=== PATIENT | female | born 1995 | race Caucasian/White ===

== ENCOUNTER → 2017-11-23 08:30 | Outpatient (CLI) | payer OTHER, SELFPAY | PROVIDERS: Family Provider Family Medicine; PCP Family Medicine; Visit Provider Obstetrics & Gynecology | DX: Z12.4 Encounter for screening for malignant neoplasm of cervix (principal) ==

== ENCOUNTER → 2018-02-23 16:18 | Outpatient (CLI) | payer OTHER, SELFPAY ==
--- NOTE | 2018-02-23 16:21 | RAD_ITS ---
STUDY: X-RAY - LUMBAR SPINE REASON FOR EXAM: Female, 22 years old. Lower back pain TECHNIQUE: 5 view(s) of the lumbar spine were obtained. COMPARISON: None FINDINGS: Normal lumbar lordosis. There is no substantial scoliosis. There is a normal alignment of the vertebrae. Normal vertebral bodies and endplates. Normal disc space heights. The soft tissue structures are unremarkable. RAD/L/S Spine Min 4 Views IMPRESSION: Normal x-ray examination of the lumbar spine. Electronically Signed: Yassine Leija MD at 15:05 EDT Tel , Service support ,
--- NOTE | 2018-02-23 16:21 | RAD_ITS ---
STUDY: X-RAY - CERVICAL SPINE REASON FOR EXAM: Female, 22 years old. Neck pain TECHNIQUE: 6 view(s) of the cervical spine were obtained. COMPARISON: None FINDINGS: Normal anterior atlantoaxial articulation. Normal odontoid process. Normal cervical lordosis. Normal vertebral bodies and endplates. Normal disc space heights. Normal visualized intervertebral neuroforamina. The soft tissue structures are unremarkable. RAD/Cerv Spine 4 or 5 Views IMPRESSION: Normal x-ray examination of the visualized cervical spine. Electronically Signed: Yassine Leija MD at 15:05 EDT Tel , Service support ,
== END ==
PROVIDERS: Family Provider Family Medicine; PCP Family Medicine; Referring Provider Family Medicine; Visit Provider Family Medicine
DX: M54.2 Cervicalgia (principal); M54.9 Dorsalgia, unspecified
CPT/HCPCS: 72050; 72110

== ENCOUNTER 2018-04-19 11:00 | Outpatient (RCR) | payer OTHER, SELFPAY ==
--- NOTE | 2018-03-29 16:32 | MASS.EVAL ---
Massage Therapy Evaluation: Initial Evaluation Date: 03/24/2018 SUBJECTIVE: Eleonora is a 22 year old female who was referred to the [facility] facility for a massotherapy evaluation by Dr. Carrizales with the diagnosis of neck and back pain. She presents today with the symptoms of tension and pain in her neck. She also complains of back tension. She reports having a medical history chronic neck and upper back and lower back tension. OBJECTIVE: Upon observation Eleonora has poor posture in sitting and standing with her neck. After examination and palpation I found her to have very high muscle tension with tenderness and myofascial restrictions in her sub occipitals, levator scapulae, trapezius, rhomboids, scalenes, and thoracic paraspinals. The first treatment consisted of a one hour massage to her upper body with myofascial release, muscle stripping, trigger point compression techniques, and cervical manual traction. ASSESSMENT: I feel that Eleonora is a good candidate for massotherapy at this time. She had a favorable response to the first treatment with reduction in her muscle aches, pain and tension. She also had improvement in her cervical flexibility and low back flexibility. PLAN: The plan of care was reviewed with the patient. The patient is to be seen on as needed basis for a total of ten sessions with the recommendation of once every two weeks for a one hour treatment. Renee Bolanos LMT
--- NOTE | 2018-05-21 16:12 | DS.PCM_ITS ---
Massage Therapy Discharge Summary: Discharge Date: 05/21/2018 Eleonora was seen for a massotherapy evaluation on 03/24/2018 with the diagnosis of neck and back pain. She was treated with three sessions of massage therapy consisting of deep pressure soft tissue techniques, myofascial release and trigger point compression to her cervical, thoracic, lower back, upper extremities and lower extremities. Eleonora responded well to the therapy by reporting decreased tension and pain throughout her head, neck, shoulders, lower back and hips. Her goals for therapy were not met throughout the treatment sessions since she was unable to schedule more appointments. At this time this patient is being discharged from our care at [facility] facility.
== END 2018-04-19 19:00 | disposition home or self-care (01) ==
LOC: MASS 11:00
PROVIDERS: Family Provider Family Medicine; PCP Family Medicine; Referring Provider Family Medicine; Visit Provider Family Medicine
DX: M54.2 Cervicalgia (principal); M54.9 Dorsalgia, unspecified
CPT/HCPCS: 97124

== ENCOUNTER → 2018-07-09 17:47 | Outpatient (CLI) | payer OTHER, SELFPAY ==
[2018-07-09 16:52] VITALS: BMI 23.9
[2018-07-09 20:24] LABS: Chlamydia Trachomatis by PCR Negative (Negative); Neisserai gonorrhoeae by PCR Negative (Negative); Probe Check PASS; Sample Adequacy Control PASS; Specimen Processing Control PASS
[2018-07-15 13:18] LABS: HPV Reflexed? NOT INDICATED
== END ==
PROVIDERS: Family Provider Family Medicine; PCP Family Medicine; Referring Provider Obstetrics & Gynecology; Visit Provider Obstetrics & Gynecology
DX: Z12.4 Encounter for screening for malignant neoplasm of cervix (principal)
CPT/HCPCS: 87086; 87088; 87491; 87591; 87624; 88175; G0145

== ENCOUNTER → 2018-07-21 15:59 | Outpatient (CLI) | payer OTHER, SELFPAY ==
[2018-07-09 16:52] VITALS: BMI 23.9
[2018-07-21 17:35] LABS: Absolute Lymphocyte Count 1.29 X10^3/ul (0.83-4.51); Absolute Neutrophil Count 4.1 X10^3/uL (2.0-7.7); Basophil# 0.02 X10^3/uL; Basophil% 0.3 % (0-1); Eosinophil# 0.05 X10^3/uL; Eosinophils% 0.8 % (0-5); Hematocrit 37.4 % (37-47); Hemoglobin 12.8 g/dl (12.0-15.0); Lymphocyte # 1.29 X10^3/ul (4.0); Lymphocyte % 21.9 % (19-41); Mean Corp Hgb Conc 34.2 g/gl (32-36); Mean Corpuscular Hgb 31.2 pg (27.0-32.0); Mean Corpuscular Volume 91.2 fL (81-99); Monocyte# 0.47 X10^3/uL; Neutrophil # 4.07 X10^3/uL (2.7-7.7); Platelet Count 146 K/mm3 (150-450); RBC Distribution Width CV 12.4 % (11.6-14.6); RBC Distribution Width SD 40.5 fl (35.1-43.9); White Blood Count 5.9 K/mm3 (4.4-11.0)
[2018-07-21 17:36] LABS: POSITIVE COUNT NO; POSITIVE DIFFERENTIAL NO; POSITIVE MORPHOLOGY NO
[2018-07-21 18:47] LABS: HIV - WCH Non-Reactive (Nonreactive)
[2018-07-23 03:12] LABS: Rapid Plasmin Reagin (RPR) NONREACTIVE (NONREACTIVE)
[2018-07-23 08:16] LABS: HEPATITIS B SURFACE AG Negative (Negative)
== END ==
PROVIDERS: Family Provider Family Medicine; PCP Family Medicine; Referring Provider Obstetrics & Gynecology; Visit Provider Obstetrics & Gynecology
DX: Z34.90 Encounter for supervision of normal pregnancy, unspecified, unspecified trimester (principal)
CPT/HCPCS: 36415; 85025; 86592; 86703; 86762; 86850; 86900; 87340

== ENCOUNTER → 2018-09-16 12:25 | Outpatient (CLI) | payer OTHER, SELFPAY ==
[2018-08-04 10:45] VITALS: BMI 23.9
[2018-09-01 11:48] VITALS: BMI 23.9
--- NOTE | 2018-09-16 12:26 | US_ITS ---
STUDY: SECOND AND THIRD TRIMESTER OBSTETRICAL ULTRASOUND REASON FOR EXAM: Female, 23 years old. Routine survey. LMP: 05/06/2018 TECHNIQUE: Transabdominal TECHNICAL QUALITY: Adequate. PRIOR ULTRASOUND: None. FINDINGS: There is a single intrauterine fetus. The fetus is in a cephalic presentation. There is demonstrated cardiac activity with a heart rate of 142 bpm. There is a normal amniotic fluid volume. The largest amniotic fluid pocket measures 3.9 cm. The placenta is anterior in location and is not low lying. There are Grade 0 placental changes. The cervix measures 4.2 cm in length. The bilateral adnexal regions are normal. BIOMETRY: BPD: 4.16 cm: 18 weeks, 5 days HC: 16.92 cm: 19 weeks, 4 days AC: 14.61 cm: 20 weeks, 0 days FL: 3.05 cm: 19 weeks, 4 days age by current US: 19 weeks, 4 days. [place] by current US: 02/06/2019. Estimated weight: 304 grams, +/- 44 grams, 82 %. Age by LMP: 19 weeks, 0 days. [place] by LMP: 02/10/2019. ANATOMY: Gender: Female Cranium: Normal lateral ventricles. Normal choroid plexus. Normal cerebellum. Normal cisterna magna. Normal face, nose and lips. Chest: Normal 4-chamber heart. Abdomen/Pelvis: Normal diaphragm. Normal stomach. Normal abdominal wall. Normal cord insertion. Normal 3 vessel cord. Normal kidneys. Normal bladder. Spine: Normal cervical spine. Normal thoracic spine. Normal lumbar spine. Normal sacrum. Extremities: Normal bilateral upper extremities. Normal bilateral lower extremities. US/OB Anatomy Scan IMPRESSION: Single live intrauterine at 19 weeks, 4 days by current ultrasound with AMERICA of 02/06/2019. Heart rate at 142 bpm. No suspicious sonographic findings. Electronically Signed: Adonay Hernandez MD at 14:05 EDT , Service support ,
== END ==
PROVIDERS: Family Provider Family Medicine; PCP Family Medicine; Referring Provider Obstetrics & Gynecology; Visit Provider Obstetrics & Gynecology
DX: Z36.9 Encounter for antenatal screening, unspecified (principal)
CPT/HCPCS: 76805

== ENCOUNTER 2018-10-05 12:30 | Outpatient (RCR) | payer OTHER, SELFPAY ==
[2018-07-09 16:52] VITALS: BMI 23.9
--- NOTE | 2018-08-16 16:01 | MASS.EVAL_ITS ---
Massage Therapy Evaluation: SUBJECTIVE: Eleonora is a 23 year old female who was referred to the [facility] facility for a massotherapy evaluation by Dr. Carrizales with the diagnosis of neck and back pain. Eleonora presents today with the symptoms of tension and pain in her neck, mid back and low back. Eleonora reports having a past medical history neck and back pain. She reports having moderate improvement with chiropractic treatments. The patient also reports of being 12 Weeks . OBJECTIVE: Upon observation Eleonora has some posture issues with her head and shoulders forward from the neutral position in sitting and standing. After examination and palpation I found Eleonora to have high muscle tension with tenderness and myofascial restrictions in her sub occipitals, levator scapulae, trapezius, rhomboids, scalenes, and thoracic paraspinals. Her QL?s, lumbar paraspinals, piriformis, glute medius and minimus all were very tight with fascial restrictions, tender points and trigger points. The first treatment consisted of a 45 minute massage to her upper body with myofascial release, muscle stripping, trigger point compression techniques, and cervical manual traction. ASSESSMENT: I feel that Eleonora is a good candidate for massotherapy at this time. She had a favorable response to the first treatment with reduction in her muscle aches, pain and tension. She also had improvement in her cervical flexibility and low back flexibility. PLAN: The plan of care was reviewed with the patient. The patient is to be seen on an as needed basis for a total of ten sessions with the recommendation of once every month for a one hour treatment.
--- NOTE | 2019-05-02 19:13 | MASS.DISCH ---
Massage Therapy Discharge Summary: Discharge Date: 05/02/2019 Eleonora was seen for a massotherapy evaluation on 08/03/2018 with the diagnosis of back pain and being . She was treated with two sessions of massage therapy consisting of moderate to deep pressure soft tissue techniques, myofascial release and trigger point compression to her cervical, thoracic, lower back, and hips. Eleonora responded well to the therapy by reporting decreased tension and pain throughout her head, neck, shoulders, lower back and hips. Her goals for therapy were met throughout the treatment sessions. At this time this patient is being discharged from our care at [facility] facility.
== END 2018-10-05 19:00 | disposition home or self-care (01) ==
LOC: MASS 12:30
PROVIDERS: Family Provider Family Medicine; PCP Family Medicine; Referring Provider Family Medicine; Visit Provider Family Medicine
DX: M54.9 Dorsalgia, unspecified (principal)
CPT/HCPCS: 97124

== ENCOUNTER → 2018-11-16 16:02 | Outpatient (CLI) | payer OTHER, SELFPAY ==
[2018-11-16 15:36] VITALS: BMI 23.9
[2018-11-16 17:13] LABS: Absolute Lymphocyte Count 1.34 X10^3/ul (0.83-4.51); Absolute Neutrophil Count 3.9 X10^3/uL (2.0-7.7); Basophil# 0.01 X10^3/uL; Basophil% 0.2 % (0-1); Eosinophils% 1.7 % (0-5); Hematocrit 35.5 % (37-47); Hemoglobin 12.2 g/dl (12.0-15.0); Lymphocyte # 1.34 X10^3/ul (4.0); Mean Corp Hgb Conc 34.4 g/gl (32-36); Mean Corpuscular Hgb 30.8 pg (27.0-32.0); Mean Corpuscular Volume 89.6 fL (81-99); Mean Platelet Vol. 9.9 fl (6.2-12.0); Monocyte# 0.44 X10^3/uL; Monocyte% 7.5 % (0-10); Neutrophil # 3.93 X10^3/uL (2.7-7.7); Neutrophil % 67.4 % (47-70); Platelet Count 166 K/mm3 (150-450); RBC Distribution Width SD 41.3 fl (35.1-43.9); Red Blood Count 3.96 M/mm3 (4.2-5.4); White Blood Count 5.8 K/mm3 (4.4-11.0)
[2018-11-16 17:16] LABS: POSITIVE COUNT NO; POSITIVE DIFFERENTIAL NO; POSITIVE MORPHOLOGY NO
[2018-11-16 17:49] LABS: Glucose Challenge Gest 1H 50g 104 mg/dL (70-140)
== END ==
PROVIDERS: Family Provider Family Medicine; PCP Family Medicine; Referring Provider Obstetrics & Gynecology; Visit Provider Obstetrics & Gynecology
DX: Z34.92 Encounter for supervision of normal pregnancy, unspecified, second trimester (principal); Z3A.27 27 weeks gestation of pregnancy
CPT/HCPCS: 36415; 82950; 85025

== ENCOUNTER → 2019-01-17 17:50 | Outpatient (CLI) | payer OTHER, SELFPAY ==
[2019-01-17 14:23] VITALS: BMI 23.9
== END ==
PROVIDERS: Family Provider Family Medicine; PCP Family Medicine; Referring Provider Obstetrics & Gynecology; Visit Provider Obstetrics & Gynecology
DX: Z34.93 Encounter for supervision of normal pregnancy, unspecified, third trimester (principal); Z3A.36 36 weeks gestation of pregnancy
CPT/HCPCS: 87081

== ENCOUNTER 2019-02-11 22:34 | Outpatient (CLI) | payer OTHER, SELFPAY ==
[2019-02-10 15:31] VITALS: BMI 23.9
[2019-02-11 23:08] VITALS: BMI 29.2
[2019-02-12] MEDS: Acetaminophen 500 MG Tablet 1000 MG PO (01:03)
[2019-02-12] MEDS: Zolpidem Tartrate 5 MG Tablet PO (01:04)
--- NOTE | 2019-02-13 00:07 | OB.TRI.PN ---
Progress Notes Date of Service: 02/11/19 Progress Note: Patient presents for triage evaluation secondary to contractions FHT: 140 Moderate variability reactive no decelerations category I tracing [place]: q3-7 Contractions Assessment and plan: False labor reactive NST, reassuring maternal and status patient discharged to home to follow-up as scheduled next week. See problem list details for additional plan information. Multi Select Codes - Urinary/Genital Urinary/Genital CPT Codes: 74217-25 non-stress test Interp
== END 2019-02-12 01:15 | disposition home or self-care (01) ==
LOC: WPOUT 22:58 → WP 22:59
PROVIDERS: Family Provider Family Medicine; PCP Family Medicine; Visit Provider Obstetrics & Gynecology
DX: O47.9 False labor, unspecified (principal); Z3A.00 Weeks of gestation of pregnancy not specified
CPT/HCPCS: 59025; 59050; 99218; G0378

== ENCOUNTER 2019-02-12 07:45 | Inpatient (IN) | payer OTHER, SELFPAY ==
[2019-02-11 23:08] VITALS: BMI 29.2
[2019-02-12 08:23] VITALS: BMI 29.2
[2019-02-12] MEDS: Lactated Ringers 1,000 ML 100 ML IV (08:35)
[2019-02-12 08:49] LABS: Absolute Lymphocyte Count 1.12 X10^3/uL (0.83-4.51); Absolute Neutrophil Count 8.5 X10^3/uL (2.0-7.7); Basophil# 0.02 X10^3/uL; Basophil% 0.2 % (0-1); Eosinophil# 0.01 X10^3/uL; Eosinophils% 0.1 % (0-5); Hematocrit 35.6 % (37-47); Hemoglobin 12.2 g/dL (12.0-15.0); Lymphocyte # 1.12 X10^3/ul (4.0); Mean Corp Hgb Conc 34.3 g/dL (32-36); Mean Corpuscular Hgb 30.7 pg (27.0-32.0); Mean Corpuscular Volume 89.4 fL (81-99); Mean Platelet Vol. 10.5 fl (6.2-12.0); Monocyte# 0.47 X10^3/uL; Monocyte% 4.6 % (0-10); NRBC Flagged by Analyzer 0 % (0-5); Neutrophil # 8.48 X10^3/uL (2.7-7.7); Neutrophil % 83.5 % (47-70); Platelet Count 153 K/mm3 (150-450); RBC Distribution Width CV 12.5 % (11.6-14.6); RBC Distribution Width SD 40.8 fl (35.1-43.9); Red Blood Count 3.98 M/mm3 (4.2-5.4); White Blood Count 10.2 K/mm3 (4.4-11.0)
[2019-02-12] MEDS: Lactated Ringers 500 ML 999 ML IV ×3 (09:05→20:51)
--- NOTE | 2019-02-12 09:24 | HP.PCM_ITS ---
- Problem List (1) Pap smear of cervix unsatisfactory Status: Acute Comment: repeat at pp (2) Supervision of normal Status: Acute Qualifiers: Comment: PRR [place] 02/10/19 girl Marc Spouse Gurpreet (3) Status: Acute Qualifiers: Comment: Discussed carrier, genetic and NT screening - declined. nl anatomy History Date of Admission: 02/12/19 Final AMERICA: 02/10/19 Gestational age: 40 Weeks and 2 Days History of this : This is a 23 year-old, , at 40 weeks gestational age presents IAL no vb lof good fm regular ctx. she has had an uncomplicated . Medical History: Medical History (Last Reviewed 02/10/19 @ 15:31 by Lety Cuello) Chronic eczema L30.9 Seasonal allergies J30.2 takes allergy injection q weekly Surgical History: Surgical History (Last Reviewed 02/10/19 @ 15:31 by Lety Cuello) H/O wisdom tooth extraction K08.409 Allergies Penicillins Allergy (Verified 02/11/19 23:09) Rash Home Medications: Home Medications vitamin#30 30 mg iron-10 mg iron-folic acid 1 mg-omg3 capsule 1 cap PO DAILY cap 09/01/18 Smoking Status: Never smoker Number of Fetus(es): 1 NST - FHR Rate Baby A Baseline: 140 Variability:: Minimal, Moderate Accelerations:: 15 x 15 Decelerations:: Late - isolated NST Reactive:: Yes FHR Category:: Category II Uterine Activity:: q 3-5 History Past Pregnancies: Past Pregnancies Delivery Date Name GA/Weeks Outcome Route Weight Gender Labor Length Anesthesia Delivery Location Provider FOB Labs: Mom's Labs & Results 02/12/19 02/12/19 08:35 08:35 WBC 10.2 RBC 3.98 L Hgb 12.2 Hct 35.6 L MCV 89.4 MCH 30.7 MCHC 34.3 RDW Std Deviation 40.8 RDW Coeff of [place] 12.5 Plt Count 153 MPV 10.5 Immature Gran % (Auto) 0.600 Neut % (Auto) 83.5 H Lymph % (Auto) 11.0 L Moody % (Auto) 4.6 Eos % (Auto) 0.1 Baso % (Auto) 0.2 Absolute Neuts (auto) 8.5 H Absolute Lymphs (auto) 1.12 Nucleated RBC % 0 Blood Type Pending Antibody Screen Pending Course Did the patient receive Yes care? Labs Blood Type: O RH: POSITIVE RPR/VDRL/Syphilis Nonreactive Rubella status Immune Date Done: 07/21/18 Chlamydia Negative Gonorrhea Negative HIV/AIDS Non-Reactive Group B Strep: Negative Current Obstetrical History Gestational Diabetes No Incompetent Cervix No Infertility No IUGR No Macrosomia No Hypertension/Pre-eclampsia No Placenta Previa/Abruption No PTL/PROM No Uterine anomaly No Oligohydramnios No Polyhydramnios No Multiple gestation No Past Medical History Asthma No Diabetes No Hypertension No Heart disease No Mitral valve prolapse No Neurologic/Seizure disorder/ No Migraines Kidney disease No Liver disease No Varicosities No Clotting disorders/Hx of DVT No Thyroid Dysfunction No Other medical diseases No Psychiatric disorders No Major trauma No Abnormal PAP smear No Sleep apnea No Mammogram in the last 2 years No Social History Marital Status: Alleged father Gurpreet Saleem Hx Smoking No Smoking Status Never smoker Expected Delivery Method: Spontaneous Vaginal Review of Systems Constitutional: Denies: Fever, Malaise Eyes: Denies: Blurred vision, Vision Change HEENT: Denies: Head Aches, Visual Changes Cardiovascular: Denies: Chest Pain, Palpitations Respiratory: Denies: Cough, Shortness of Breath, Wheezing Gastrointestinal: Denies: Abdominal Pain, Diarrhea, Nausea, Vomiting Genitourinary: Denies: Dysuria, Hematuria Musculoskeletal: Denies: Joint Pain, Muscle pain Skin: Denies: Lesions, Rash Neurological: Denies: Blurred vision, Focal weakness, Headaches Psychiatric: Denies: Anxiety, Depression Endocrine: Denies: Heat/ Cold Intolerance Hematologic/ Lymphatic: Denies: Easy Bruising, Easy Bleeding Physical Exam General: Alert, Cooperative, No apparent distress HEENT: Atraumatic, Normocephalic. Negative for: Thyromegaly, Lymphadenopathy Cardiovascular: Regular rate Lungs: Normal air movement Abdomen: Soft, Non Tender, Gravid Neurological: Deep Tendon Reflexes 2+/4 and Symmetrical, Neuro grossly intact. Negative for: Clonus CHIEF WELLNESS OFFICER: Normal external genitalia. Negative for: Vulvar lesions Estimated gestational size: Appropriate for gestational size Presentation: Cephalic Cervix Dilation (cm): 4 Assessment/Plan All Active Problems Pap smear of cervix unsatisfactory (Acute) Supervision of normal (Acute) (Acute) Segmental and somatic dysfunction of thoracic region (Acute) Segmental and somatic dysfunction of lumbar region (Acute) Segmental and somatic dysfunction of cervical region (Acute) Occupational exposure in workplace (Resolved) This is a 23 year-old, at 40 weeks gestational age presents IAL. Patient presents IAL, plan expectant management for , pitocin/AROM PRN if needed. Pain management: Plans epidural. GBS negative. Management of any complications: None I have reviewed the [facility] and made any clinically relevant updates.
[2019-02-12] MEDS: fentaNYL-bupivacaine (epidural) 100 ML BAG EPIDURAL ×3 (10:50→19:36)
[2019-02-12] MEDS: Lactated Ringers 1,000 ML 200 ML IV ×2 (14:52→19:58)
--- NOTE | 2019-02-12 16:32 | PCM.PN.BLA ---
Progress Note FHT: 140 Moderate variability positive scalp stim. one variable deceleration category II tracing [place]: q 3-5 Contractions s/p start pitocin overall reassuring 6-7 cm iupc placed
[2019-02-12] MEDS: Oxytocin 30 units/NS 500 ml 30 UNITS/500 ML IV.SOLN IV (16:33)
[2019-02-12] MEDS: Acetaminophen 325 MG Tablet PO (18:51)
[2019-02-12] MEDS: Ondansetron 4 MG/2 ML Vial IV (21:30)
[2019-02-12] MEDS: Oxytocin 30 units/NS 500 ml 30 UNITS/500 ML IV.SOLN 334 UNITS IV (23:19)
--- NOTE | 2019-02-12 23:50 | PCM.OPRPT ---
Problem List (1) Pap smear of cervix unsatisfactory Status: Acute Comment: repeat at pp (2) Supervision of normal Status: Acute Qualifiers: Comment: PRR [place] 02/10/19 girl Marc Spouse Gurpreet (3) Status: Acute Qualifiers: Comment: Discussed carrier, genetic and NT screening - declined. nl anatomy (4) Vaginal delivery Status: Acute Vaginal Delivery Maternal Presentation: Active Labor ial 40 weeks Method of Induction: Pitocin Amniotic Membrane Rupture Type: Artificial Amniotic Fluid Description: Clear Final [place]: 02/10/19 Gestational age: 40 Weeks and 2 Days Date of Procedure: 02/12/19 Pre-Operative Diagnosis: ial Post-Operative Diagnosis: same Surgery/ Procedure Performed: Spontaneous Vaginal Delivery Type of Anesthesia: Epidural Description of Procedure: Patient began pushing and delivered the head in the KATHRYN presentation. The head was delivered atraumatically. The anterior and posterior shoulders delivered without complication followed by the rest of the and the infant was placed on the maternal abdomen. Delayed cord clamping was employed for approximately 60 seconds. Cord was clamped and cut and gentle traction was applied to the cord and the placenta delivered spontaneously immediately following it was noted to be intact with three-vessel cord. The perineum and vagina were inspected and noted to have a second-degree perineal laceration was repaired in the usual fashion with 3-0 Vicryl rapide. EBL was 300 cc. Patient and infant tolerated delivery well. Presentation: KATHRYN Placental Delivery Description: Spontaneous Placenta Disposition: [facility] Cord Vessel Description: 3 Vessels Cord Entanglement: None Drain: Feliz to straight drain Estimated Blood Loss: 300 A gender: Female Episiotomy Description: None Laceration: Perineal Extension/lac, 2nd degree Medications given after delivery: IV Pitocin Complications: None
[2019-02-13] MEDS: Naproxen 250 MG Tablet 500 MG PO ×2 (01:17→08:42)
[2019-02-13] MEDS: 0.9% Saline Lock 10 ML Syringe IV (02:35)
[2019-02-13 03:10] VITALS: BP 114/66; PULSE 82; RESP 17; TEMP 36.1
[2019-02-13 08:21] VITALS: BP 106/56; PULSE 73; RESP 15; TEMP 36.9
[2019-02-13 12:00] VITALS: BP 108/64; PULSE 91; RESP 16; TEMP 36.9
--- NOTE | 2019-02-13 12:20 | PCM.PN.OB ---
Patient Problems: Active and Suspected Problems (Last Reviewed 02/10/19 @ 15:31 by Lety Cuello) Vaginal delivery (Acute) Subjective: doing well no complaints pain controlled no CP SOB N V ambulating well tolerating po lochia moderate, going well - Physical Exam General: Alert, Oriented x3 Vital Signs Temp Pulse Resp BP 98.4 F 73 15 106/56 L 02/13/19 08:21 02/13/19 08:21 02/13/19 08:21 02/13/19 08:21 Oxygen Delivery Method Room Air Weight: 170 lb Body Mass Index (BMI) 29.2 Intake and Output for Last 24 Hours 02/11/19 02/12/19 02/13/19 23:59 23:59 23:59 Intake Total 5050.53 / 5050.53 333 / 333 Output Total 2600 / 2600 600 / 600 Balance 2450.53 / 2450.53 -267 / -267 Medical Necessity - Tobacco Use Smoking Status: Never smoker Assessment/Plan All Active Problems Vaginal delivery (Acute) Pap smear of cervix unsatisfactory (Acute) Supervision of normal (Acute) (Acute) Segmental and somatic dysfunction of thoracic region (Acute) Segmental and somatic dysfunction of lumbar region (Acute) Segmental and somatic dysfunction of cervical region (Acute) Occupational exposure in workplace (Resolved) s/p PPD # 1 1. routine post delivery care 2. breast feeding- support given 3. rh positive 4. rubella immune
[2019-02-13 16:36] VITALS: BP 114/56; PULSE 72; RESP 15; TEMP 36.6
[2019-02-13] MEDS: Acetaminophen 500 MG Tablet 1000 MG PO (17:47)
[2019-02-13 20:27] VITALS: BP 115/54; PULSE 77; RESP 17; TEMP 36.6
[2019-02-14 01:14] VITALS: BP 114/72; PULSE 69; RESP 16; TEMP 36.6
[2019-02-14] MEDS: Naproxen 250 MG Tablet 500 MG PO (05:33)
[2019-02-14 08:00] VITALS: BP 113/71; PULSE 73; RESP 18; TEMP 36.6
--- NOTE | 2019-02-14 11:05 | DCINST_ITS ---
Discharge Diet: No Restrictions Discharge Activity: Return to Normal Activity, May not drive while taking narcotic pain medications., May Shower May resume sexual activity in: 4-6 weeks Call your doctor if your incision/area has: Continuous Slow Oozing, Sudden Increased Bleeding, Increased Pain/ Swelling, Increased Redness, Foul Smelling Discharge Additional Instructions: If you experience any of the following, contact your healthcare provider. * Bleeding that soaks a pad every hour for 2 hours * Fever 100.4 or higher * Unrelieved incision or abdominal pain * Swelling, redness, discharge or bleeding from your incision or episiotomy site * Your incision begins to separate * Problems urinating (including inability to urinate or burning while urinating). * Visual changes * Severe headache * Flu-like symptoms * Pain or redness in one of both of your breasts * Pain, warmth, tenderness or swelling in your legs, especially the calf area * Frequent nausea and vomiting * Symptoms of depression or anxiety If you experience any of the following, call 911 or go to the nearest Emergency Room. * Chest pain * Problems breathing * Seizure activity * Partial or complete paralysis of a body part, slurred speech, weakness or drooping of the face, or a sudden inability to walk or hold your balance Allergies/Adverse Reactions: Allergies Penicillins Allergy (Verified 02/11/19 23:09) Rash Medications to take at Discharge vitamin#30 30 mg iron-10 mg iron-folic acid 1 mg-omg3 capsule 1 cap PO DAILY cap 09/01/18 Please Follow Up With: Daphnie Mcmahan MD - [phone] When: Call to make an appointment with your doctor in 6 weeks. If you had elevated Blood pressure or 4th degree laceration you will need to be seen in 2 weeks. Primary Care Physician: Harley Carrizales MD [Primary Care Provider] - Test Results: Test results from this visit will be discussed in further detail at your follow- up appointment, if applicable.
--- NOTE | 2019-02-14 11:05 | PCM.DCVAG ---
Discharge Diet: No Restrictions Discharge Activity: Return to Normal Activity, May not drive while taking narcotic pain medications., May Shower May resume sexual activity in: 4-6 weeks Call your doctor if your incision/area has: Continuous Slow Oozing, Sudden Increased Bleeding, Increased Pain/ Swelling, Increased Redness, Foul Smelling Discharge Additional Instructions: If you experience any of the following, contact your healthcare provider. Bleeding that soaks a pad every hour for 2 hours Fever 100.4 or higher Unrelieved incision or abdominal pain Swelling, redness, discharge or bleeding from your incision or episiotomy site Your incision begins to separate Problems urinating (including inability to urinate or burning while urinating). Visual changes Severe headache Flu-like symptoms Pain or redness in one of both of your breasts Pain, warmth, tenderness or swelling in your legs, especially the calf area Frequent nausea and vomiting Symptoms of depression or anxiety If you experience any of the following, call 911 or go to the nearest Emergency Room. Chest pain Problems breathing Seizure activity Partial or complete paralysis of a body part, slurred speech, weakness or drooping of the face, or a sudden inability to walk or hold your balance Allergies/Adverse Reactions: Allergies Penicillins Allergy (Verified 02/11/19 23:09) Rash Medications to take at Discharge vitamin#30 30 mg iron-10 mg iron-folic acid 1 mg-omg3 capsule 1 cap PO DAILY cap 09/01/18 Please Follow Up With: Daphnie Mcmahan MD - [phone] When: Call to make an appointment with your doctor in 6 weeks. If you had elevated Blood pressure or 4th degree laceration you will need to be seen in 2 weeks. Primary Care Physician: Harley Carrizales MD [Primary Care Provider] - Test Results: Test results from this visit will be discussed in further detail at your follow-up appointment, if applicable.
--- NOTE | 2019-02-14 11:05 | PCM.PN.OB ---
Subjective: doing well no complaints pain controlled no CP SOB N V ambulating well tolerating po lochia moderate, going well - Physical Exam Vital Signs Temp Pulse Resp BP 97.8 F 73 18 113/71 02/14/19 08:00 02/14/19 08:00 02/14/19 08:00 02/14/19 08:00 Oxygen Delivery Method Room Air Weight: 170 lb Body Mass Index (BMI) 29.2 Intake and Output for Last 24 Hours 02/12/19 02/13/19 02/14/19 23:59 23:59 23:59 Intake Total 5050.53 / 5050.53 333 / 333 Output Total 2600 / 2600 600 / 600 Balance 2450.53 / 2450.53 -267 / -267 Medical Necessity - Tobacco Use Smoking Status: Never smoker Assessment/Plan All Active Problems Vaginal delivery (Acute) Pap smear of cervix unsatisfactory (Acute) Supervision of normal (Acute) (Acute) Segmental and somatic dysfunction of thoracic region (Acute) Segmental and somatic dysfunction of lumbar region (Acute) Segmental and somatic dysfunction of cervical region (Acute) Occupational exposure in workplace (Resolved) s/p PPD # 2 1. routine post delivery care 2. breast feeding- support given 3. rh positive 4. rubella immune
== END 2019-02-14 10:35 | disposition home or self-care (01) | DRG 807 ==
PROVIDERS: Admitting Provider Obstetrics & Gynecology; Family Provider Family Medicine; PCP Family Medicine; Referring Provider Obstetrics & Gynecology; Visit Provider Obstetrics & Gynecology
DX: O76 Abnormality in fetal heart rate and rhythm complicating labor and delivery (principal); O70.1 Second degree perineal laceration during delivery; Z37.0 Single live birth
CPT/HCPCS: 59025; 59050; 85025; 86850; 86900; 86901; 99218; J7120; A4216; G0378; J2405

== ENCOUNTER → 2019-03-31 17:04 | Outpatient (CLI) | payer OTHER, SELFPAY ==
[2019-03-31 14:39] VITALS: BMI 29.2
[2019-04-08 16:51] LABS: HPV APTIMA, High Risk Negative (Negative); HPV Reflexed? YES, CHARGE PATIENT
== END ==
PROVIDERS: Family Provider Family Medicine; PCP Family Medicine; Referring Provider Obstetrics & Gynecology; Visit Provider Obstetrics & Gynecology
DX: Z12.4 Encounter for screening for malignant neoplasm of cervix (principal)
CPT/HCPCS: 87624; 88175; G0145

== ENCOUNTER → 2019-05-12 10:28 | Outpatient (CLI) | payer OTHER, SELFPAY ==
[2019-05-12 06:32] VITALS: BMI 24.7
== END ==
PROVIDERS: Family Provider Family Medicine; PCP Family Medicine; Referring Provider Physician Assistant; Visit Provider Physician Assistant
DX: J02.9 Acute pharyngitis, unspecified (principal)
CPT/HCPCS: 87070

== ENCOUNTER → 2020-04-09 | Outpatient (CLI) | payer OTHER, SELFPAY ==
[2020-04-09 15:22] VITALS: BMI 23.3
[2020-04-12 11:22] LABS: HPV Reflexed? NOT INDICATED
== END | disposition home or self-care (01) ==
LOC: LABSPEC 16:44
PROVIDERS: Visit Provider Obstetrics & Gynecology
DX: Z12.4 Encounter for screening for malignant neoplasm of cervix (principal)
CPT/HCPCS: 88175; G0145

== ENCOUNTER → 2021-02-11 15:56 | Outpatient (CLI) | payer OTHER, BC, SELFPAY ==
[2021-02-11 16:18] LABS: Absolute Lymphocyte Count 1.94 X10^3/uL (0.83-4.51); Absolute Neutrophil Count 3.7 X10^3/uL (2.0-7.7); Basophil# 0.01 X10^3/uL; Basophil% 0.2 % (0-1); Eosinophil# 0.12 X10^3/uL; Eosinophils% 1.9 % (0-5); Hematocrit 36.6 % (37-47); Hemoglobin 13.2 g/dL (12.0-15.0); Lymphocyte # 1.94 X10^3/ul (0.83-4.51); Lymphocyte % 31.3 % (19-41); Mean Corp Hgb Conc 36.1 g/dL (32-36); Mean Corpuscular Hgb 31.1 pg (27.0-32.0); Mean Corpuscular Volume 86.3 fL (81-99); Mean Platelet Vol. 9.4 fl (6.2-12.0); Monocyte# 0.46 X10^3/uL; Monocyte% 7.4 % (0-10); NRBC Flagged by Analyzer 0 % (0-5); Neutrophil # 3.66 X10^3/uL (2.7-7.7); Platelet Count 177 K/mm3 (150-450); RBC Distribution Width CV 11.8 % (11.6-14.6); RBC Distribution Width SD 37.2 fl (35.1-43.9); Red Blood Count 4.24 M/mm3 (4.2-5.4); White Blood Count 6.2 K/mm3 (4.4-11.0)
[2021-02-11 17:20] LABS: HIV - WCH Non-Reactive (Nonreactive); Hepatitis B Surface Antigen Non-Reactive (Nonreactive); Hepatitis C Antibody Non-Reactive (Nonreactive); Rubella IgG Reactive (Nonreactive); Syphilis Antibodies Non-reactive
[2021-02-11 17:52] LABS: Amphetamine Urine VISTA NEGATIVE (<1000 ng/mL); Barbiturate Urine VISTA NEGATIVE (< 200 ng/mL); Benzodiazepine Urine VISTA NEGATIVE (< 200 ng/mL); Cocaine Urine VISTA NEGATIVE (< 300 ng/mL); Ecstacy Urine VISTA NEGATIVE (< 500 ng/mL); Methadone Urine VISTA NEGATIVE (< 300 ng/mL); PCP Urine VISTA NEGATIVE (< 25 ng/mL); THC Urine VISTA NEGATIVE (< 50 ng/mL); Vista UDS pH Range 6
[2021-02-14 06:08] LABS: Chlamydia By Nucleic Acid AMP Negative (Negative)
[2021-02-14 07:40] LABS: Gonococcus By Nucleic Acid AMP Negative (Negative)
== END ==
PROVIDERS: Nurse Practitioner Women's Health; PCP Family Medicine; Referring Provider Obstetrics & Gynecology; Visit Provider Obstetrics & Gynecology
DX: Z34.80 Encounter for supervision of other normal pregnancy, unspecified trimester (principal)
CPT/HCPCS: 36415; 80307; 85025; 86703; 86762; 86780; 86803; 86850; 86900; 86901; 87086; 87088; 87340; 87491; 87591

== ENCOUNTER → 2021-05-03 12:22 | Outpatient (CLI) | payer OTHER, BC, SELFPAY ==
--- NOTE | 2021-05-03 12:24 | US_ITS ---
STUDY: SECOND AND THIRD TRIMESTER OBSTETRICAL ULTRASOUND REASON FOR EXAM: Female, 25 years old anatomy LMP: 12/13/2020. TECHNIQUE: Transabdominal and Transvaginal TECHNICAL QUALITY: Adequate. PRIOR ULTRASOUND: None. FINDINGS: There is a single intrauterine fetus. The fetus is in a transverse lie with the head on the maternal right side. There is demonstrated cardiac activity with a heart rate of 144 bpm. There is a normal amniotic fluid volume. The largest amniotic fluid pocket measures 7.2 cm x 2.5 cm. The amniotic fluid index (SEBASTIAN) is within normal limits. The placenta is posterior and low lying but not previa in location. There are Grade 0 placental changes. The cervix measures 3.8 cm in length. The bilateral adnexal regions are normal. BIOMETRY: BPD: 4.7 cm: 20 weeks, 1 days HC: 18.3 cm: 20 weeks, 4 days AC: 15.8 cm: 20 weeks, 6 days FL: 3.6 cm: 21 weeks, 2 days CI: 77% FL/BPD: 77% FL/HC: FL/AC: 23% HC/AC: 1.16 age by current US: 20 weeks, 3 days. [place] by current US: 09/17/2021. Estimated weight: 395 grams, +/- 59 grams, 88 %. Age by LMP: 20 weeks, 1 days. [place] by LMP: 09/19/2021. ANATOMY: Gender: Female Cranium: Normal lateral ventricles. Normal choroid plexus. Normal cerebellum. Normal cisterna magna. Normal face, nose and lips. Chest: Normal 4-chamber heart. Abdomen/Pelvis: Normal diaphragm. Normal stomach. Normal abdominal wall. Normal cord insertion. Normal 3 vessel cord. Normal kidneys. Normal bladder. Spine: Normal cervical spine. Normal thoracic spine. Normal lumbar spine. Normal sacrum. Extremities: Normal bilateral upper extremities. Normal bilateral lower extremities. IMPRESSION: Single live intrauterine gestation with a mean gestational age of 20 weeks and 3 days. Low lying posterior placenta. Electronically Signed: Scott Sanabria MD at 14:29 EST , Service support , STUDY: FIRST TRIMESTER OBSTETRICAL ULTRASOUND REASON FOR EXAM: Female, 25 years old. Cervical length measurement. TECHNIQUE: Transvaginal TECHNICAL QUALITY: Adequate. PRIOR ULTRASOUND: None. FINDINGS: The cervical length measures 3.8 cm. US/OB Anatomy Scan IMPRESSION: Cervical length measures 3.8 cm. Electronically Signed: Scott Sanabria MD at 14:30 EST , Service support ,
== END ==
PROVIDERS: PCP Family Medicine; Referring Provider Nurse Practitioner Women's Health; Visit Provider Nurse Practitioner Women's Health
DX: Z36.89 Encounter for other specified antenatal screening (principal)
CPT/HCPCS: 76805; 76817

== ENCOUNTER 2021-06-25 08:01 | Outpatient (CLI) | payer OTHER, BC, SELFPAY ==
[2021-06-25 08:32] LABS: Absolute Neutrophil Count 4.5 X10^3/uL (2.0-7.7); Basophil# 0.03 X10^3/uL; Basophil% 0.5 % (0-1); Eosinophil# 0.08 X10^3/uL; Eosinophils% 1.2 % (0-5); Lymphocyte % 21.2 % (19-41); Mean Corp Hgb Conc 35.5 g/dL (32-36); Mean Corpuscular Hgb 32.9 pg (27.0-32.0); Mean Corpuscular Volume 92.8 fL (81-99); Mean Platelet Vol. 9.5 fl (6.2-12.0); Monocyte# 0.61 X10^3/uL; Monocyte% 9.2 % (0-10); NRBC Flagged by Analyzer 0 % (0-5); Neutrophil # 4.45 X10^3/uL (2.7-7.7); Neutrophil % 67.3 % (47-70); Platelet Count 123 K/mm3 (150-450); RBC Distribution Width CV 12.6 % (11.6-14.6); RBC Distribution Width SD 42.6 fl (35.1-43.9); Red Blood Count 3.34 M/mm3 (4.2-5.4); White Blood Count 6.6 K/mm3 (4.4-11.0)
[2021-06-25 08:44] LABS: Glucose Challenge Gest 1H 50g 76 mg/dL (70-140)
== END 2021-06-25 23:59 | disposition short-term general hospital (02) ==
LOC: PAVLAB 08:02
PROVIDERS: PCP Family Medicine; Referring Provider Obstetrics & Gynecology; Visit Provider Obstetrics & Gynecology
DX: Z34.80 Encounter for supervision of other normal pregnancy, unspecified trimester (principal)
CPT/HCPCS: 36415; 82950; 85025

== ENCOUNTER 2021-06-27 09:58 | Outpatient (CLI) | payer OTHER, BC, SELFPAY ==
--- NOTE | 2021-06-27 10:02 | US_ITS ---
STUDY: SECOND AND THIRD TRIMESTER OBSTETRICAL ULTRASOUND - LIMITED REASON FOR EXAM: Female, 25 years old follow up low lying placenta LMP: 12/13/2020. PRIOR ULTRASOUND: Comparison is made with prior examination dated 05/03/2021. TECHNIQUE: Transabdominal and Transvaginal TECHNICAL QUALITY: Adequate. FINDINGS: There is a single intrauterine fetus. The fetus is in a breech presentation. There is demonstrated cardiac activity with a heart rate of 138 bpm. There is a normal amniotic fluid volume. The largest amniotic fluid pocket measures 5.8 cm x 6.4 cm. The amniotic fluid index (SEBASTIAN) is within normal limits. The placenta is posterior in location and is not low lying. There are Grade 0 placental changes. The cervix measures 3.73 cm in length. BIOMETRY: Age by LMP: 28 weeks, 0 days. AMERICA by LMP: 09/19/2021. US/OB Limited (No Biometrics) IMPRESSION: The placenta is posterior in location and is not low lying. Electronically Signed: Scott Sanabria MD at 11:49 EST ,
== END 2021-06-27 23:59 | disposition short-term general hospital (02) ==
LOC: US 09:59
PROVIDERS: PCP Family Medicine; Referring Provider Obstetrics & Gynecology; Visit Provider Obstetrics & Gynecology
DX: O44.43 Low lying placenta NOS or without hemorrhage, third trimester (principal); Z3A.28 28 weeks gestation of pregnancy
CPT/HCPCS: 76815; 76817

== ENCOUNTER 2021-07-09 08:38 | Outpatient (CLI) | payer OTHER, BC, SELFPAY ==
[2021-07-09 08:59] LABS: Absolute Lymphocyte Count 1.57 X10^3/uL (0.83-4.51); Absolute Neutrophil Count 3.3 X10^3/uL (2.0-7.7); Basophil# 0.01 X10^3/uL; Basophil% 0.2 % (0-1); Eosinophil# 0.05 X10^3/uL; Eosinophils% 0.9 % (0-5); Hematocrit 31.4 % (37-47); Hemoglobin 11.1 g/dL (12.0-15.0); Lymphocyte # 1.57 X10^3/ul (0.83-4.51); Lymphocyte % 28.2 % (19-41); Mean Corp Hgb Conc 35.4 g/dL (32-36); Mean Corpuscular Hgb 32.9 pg (27.0-32.0); Mean Corpuscular Volume 93.2 fL (81-99); Mean Platelet Vol. 9.5 fl (6.2-12.0); Monocyte# 0.59 X10^3/uL; Monocyte% 10.6 % (0-10); NRBC Flagged by Analyzer 0 % (0-5); Neutrophil # 3.27 X10^3/uL (2.7-7.7); Neutrophil % 58.7 % (47-70); Platelet Count 144 K/mm3 (150-450); RBC Distribution Width CV 12.6 % (11.6-14.6); RBC Distribution Width SD 42.5 fl (35.1-43.9); Red Blood Count 3.37 M/mm3 (4.2-5.4); White Blood Count 5.6 K/mm3 (4.4-11.0)
[2021-07-09 09:31] LABS: Thyroid Stim Hormone (TSH) 2.31 uIU/mL (0.358-3.74)
== END 2021-07-09 23:59 | disposition home or self-care (01) ==
LOC: PAVLAB 08:39
PROVIDERS: PCP Family Medicine; Referring Provider Nurse Practitioner Women's Health; Visit Provider Nurse Practitioner Women's Health
DX: D69.6 Thrombocytopenia, unspecified (principal); R23.2 Flushing
CPT/HCPCS: 36415; 84443; 85025

== ENCOUNTER 2021-08-29 06:33 | Outpatient (CLI) | payer OTHER, BC, SELFPAY | END 2021-08-29 23:59 | disposition home or self-care (01) | LOC: LABSPEC 06:34 | PROVIDERS: PCP Family Medicine; Visit Provider Obstetrics & Gynecology | DX: Z34.80 Encounter for supervision of other normal pregnancy, unspecified trimester (principal) | CPT/HCPCS: 87081 ==

== ENCOUNTER → 2021-09-11 | Outpatient (CLI) | payer OTHER, BC, SELFPAY ==
[2021-09-11 09:37] LABS: ROM Internal Control Test YES-OK TO RESULT pt. (Internal QC)
[2021-09-11 09:38] LABS: ROM Patient Test Negative (Negative)
== END | disposition home or self-care (01) ==
PROVIDERS: PCP Family Medicine; Visit Provider Obstetrics & Gynecology
DX: O26.899 Other specified pregnancy related conditions, unspecified trimester (principal); O99.891 Other specified diseases and conditions complicating pregnancy; N89.8 Other specified noninflammatory disorders of vagina
CPT/HCPCS: 84112

== ENCOUNTER 2021-09-20 21:15 | Inpatient (IN) | payer OTHER, BC, SELFPAY ==
[2021-09-20] VITALS (19 sets, daily range): BP systolic 94–134; BP diastolic 48–84; PULSE 69–87; TEMP 36.7; O2SAT 97–100; BMI 28.3
[2021-09-20] MEDS: Lactated Ringers 1,000 ML 200 ML IV (21:25)
[2021-09-20 21:51] LABS: Absolute Lymphocyte Count 1.33 X10^3/uL (0.83-4.51); Absolute Neutrophil Count 7.1 X10^3/uL (2.0-7.7); Basophil# 0.03 X10^3/uL; Basophil% 0.3 % (0-1); Eosinophil# 0.09 X10^3/uL; Hematocrit 31.9 % (37-47); Hemoglobin 10.7 g/dL (12.0-15.0); Lymphocyte # 1.33 X10^3/ul (0.83-4.51); Lymphocyte % 14.2 % (19-41); Mean Corp Hgb Conc 33.5 g/dL (32-36); Mean Corpuscular Hgb 28.8 pg (27.0-32.0); Mean Platelet Vol. 10.6 fl (6.2-12.0); Monocyte# 0.71 X10^3/uL; Monocyte% 7.6 % (0-10); NRBC Flagged by Analyzer 0 % (0-5); Neutrophil # 7.14 X10^3/uL (2.7-7.7); Neutrophil % 76.4 % (47-70); Platelet Count 148 K/mm3 (150-450); RBC Distribution Width CV 13.1 % (11.6-14.6); RBC Distribution Width SD 40.6 fl (35.1-43.9); Red Blood Count 3.71 M/mm3 (4.2-5.4); White Blood Count 9.4 K/mm3 (4.4-11.0)
[2021-09-20] MEDS: Lactated Ringers 500 ML 999 ML IV (22:05)
[2021-09-20] MEDS: fentaNYL-bupivacaine (epidural) 100 ML BAG EPIDURAL (23:05)
[2021-09-21] VITALS (26 sets, daily range): BP systolic 94–127; BP diastolic 55–83; PULSE 55–80; RESP 16; TEMP 35.9–36.7; O2SAT 96–100
[2021-09-21] MEDS: Lactated Ringers 1,000 ML 200 ML IV (02:26)
[2021-09-21] MEDS: fentaNYL-bupivacaine (epidural) 100 ML BAG EPIDURAL (03:32)
--- NOTE | 2021-09-21 03:36 | HP.PCM.OB_ITS ---
HPI - General General Date of Admission: 09/20/21 HPI Narrative NAVEEN SHAH, is a 26 F who presents IAL 5 cm dilated upon admission with regular ctx no lof or vb admits good fm. she has had an uncomplicated pregnacy. Maternal Data Information AMERICA Calculator Estimated Delivery Date Method Current WG Current Estimate 09/19/21 LMP (Certain) 40w 2d PFSH PFSH Medical History Chronic eczema Seasonal allergies Home Medications vitamin#30 30 mg iron-10 mg iron-folic acid 1 mg-omg3 capsule 1 cap PO DAILY cap 09/01/18 [History Last Taken 09/20/21 08:00] Allergy/AdvReac Type Severity Reaction Status Date / Time Penicillins Allergy Rash Verified 09/11/21 08:29 Family History Grandfather No problems noted. 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 Date Name GA/Weeks Outcome Route Bth Weight Gen Labor Lgth Anesthesia Del Locatn Provider FOB 02/12/19 Maria Elena Dhruv Shah 40 live - full term 6.12 Fema le epidural [employer] [facility]ST[facility] Gurpreet Delivery Date: 02/12/19 2 degree lac Asha Chung Visit Details Expected Delivery Route/Plan Labor Preferences- CB/BF classes: no labor support person: Gurpreet labor intervention preferences: [] pain management options preferred: epidural cut cord/dad catch: cord : yes PP control planned: discussed:considering IUD discussed possible routes of delivery and associated risks: [] special requests: [] Plans Covid status: counseled regarding risk of covid in vs vaccination and declined vaccination Flu vaccine: given Tdap vaccine: given Rhogam:na LARC form signed: yes Problem list reviewed and updated with the most current plan of care details and appropriate orders placed. Relevant counseling for the gestational age provided. Continue routine care and follow up unless otherwise noted in visit notes/problem list details OB Flowsheet Initial Weight: Not Recorded Date -?-?-?-?-?-?-?-?-?-?-?-?- EGA Weight BP Urine Prot -?-?-?-?-?-?-?-?-?-?-?-?- Glucose FHR FuHt Pres Dilation -?-?-?-?-?-?-?-?-?-?-?-?- Effaced St Visit Note 02/11/21 -?-?-?-?-?-?-?-?-?-?-?-?- 8w 4d 133 lb 120/70 -?-?-?-?-?-?-?-?-?-?-?-?- 175 -?-?-?-?-?-?-?-?-?-?-?-?- MH-NOB. US per SM: CRL 2.1cm consistent with LMP and AMERICA of 09/19/21. No VB. Nausea improved. 03/14/21 -?-?-?-?-?-?-?-?-?-?-?-?- 13w 0d 140 lb 118/68 -?-?-?-?-?-?-?-?-?-?-?-?- 150 -?-?-?-?-?-?-?-?-?-?-?-?- SM- no vb crampi ng 04/09/21 -?-?-?-?-?-?-?-?-?-?-?-?- 16w 5d 144 lb 120/60 Negative -?-?-?-?-?-?-?-?-?-?-?-?- Negative 154 -?-?-?-?-?-?-?-?-?-?-?-?- -no VB, LOF. H ad some dizziness mostly when turning suddenly. Better last 2 days. Enc fluids, small freg meals. Considering covid vaccine/enc. Ordered [employer] anatomy US 05/06/21 -?-?-?-?-?-?-?-?-?-?-?-?- 20w 4d 144 lb 114/58 -?-?-?-?-?-?-?-?-?-?-?-?- 145 -?-?-?-?-?-?-?-?-?-?-?-?- - no vb lof go od fm 06/05/21 -?-?-?-?-?-?-?-?-?-?-?-?- 24w 6d 154 lb 4 oz 102/70 Nega tive -?-?-?-?-?-?-?-?-?-?-?-?- Negative 154 -?-?-?-?-?-?-?-?-?-?-?-?- -No VB, LOF. G ood FM. More vulvar varicosities-enc belly band. 07/02/21 -?-?-?-?-?-?-?-?-?-?-?-?- 28w 5d 157 lb 2 oz 110/62 Trac e -?-?-?-?-?-?-?-?-?-?-?-?- Negative 146 -?-?-?-?-?-?-?-?-?-?-?-?- -No Vb, LOF. G ood FM. Nl 28 wk GCT and no anemia. Note very mild thrombocytopenia. Will repeat CBC 2 weeks. She has had hotflashes since last delivery 2+yr ago. May be hormonal but will check TSH. Larc, tdap done. 07/18/21 -?-?-?-?-?-?-?-?-?-?-?-?- 31w 0d 158 lb 110/70 Negative -?-?-?-?-?-?-?-?-?-?-?-?- Negative 140 28 Breech -?-?-?-?-?-?-?-?-?-?-?-?- JV- no lof, vagi nal bleeding or dec fm. + varicosities. Plts improved. No complaints. 07/30/21 -?-?-?-?-?-?-?-?-?-?-?-?- 32w 5d 158 lb 108/60 Negative -?-?-?-?-?-?-?-?-?-?-?-?- Negative 140 33 Cephalic -?-?-?-?-?-?-?-?-?-?-?-?- SM- no vb lof go od fm irregualr ctx 08/14/21 -?-?-?-?-?-?-?-?-?-?-?-?- 34w 6d 161 lb 6 oz 112/76 Nega tive -?-?-?-?-?-?-?-?-?-?-?-?- Negative 139 34 -?-?-?-?-?-?-?-?-?-?-?-?- MH-No VB, LOF. G ood FM. Some sciatica pain, will contact her chiropractor. 08/28/21 -?-?-?-?-?-?-?-?-?-?-?-?- 36w 6d 166 lb 110/80 Negative -?-?-?-?-?-?-?-?-?-?-?-?- Negative 135 36 Cephalic 0 -?-?-?-?-?-?-?-?-?-?-?-?- -3 JV- no l of, vaginal bleeding, or dec fm. vtx on us today. gbs collected. 09/04/21 -?-?-?-?-?-?-?-?-?-?-?-?- 37w 6d 165 lb 124/74 Negative -?-?-?-?-?-?-?-?-?-?-?-?- Negative 140 37 Cephalic 2 -?-?-?-?-?-?-?-?-?-?-?-?- 80 -2 JV- no lof , vaginal bleeding or dec fm. labor precautions discussed. 09/11/21 -?-?-?-?-?-?-?-?-?-?-?-?- 38w 6d 168 lb 116/76 Negative -?-?-?-?-?-?-?-?-?-?-?-?- Negative 154 38 Cephalic 2 -?-?-?-?-?-?-?-?-?-?-?-?- 80 -2 JV- pt com [place] of leaking fluid this am. she describes it as having more fluid come out after she urinated. 09/17/21 -?-?-?-?-?-?-?-?-?-?-?-?- 39w 5d 166 lb 114/70 Negative -?-?-?-?-?-?-?-?-?-?-?-?- Negative 150 39 Cephalic 2 -?-?-?-?-?-?-?--?-?-?-?-?- 80 -2 SM- no vb lof good fm no regular ctx discussed IOL thursday if no spontaneous labor SM- no vb lof good fm no reg ualr ctx 09/20/21 -?-?-?-?-?-?-?-?-?-?-?-?- 40w 1d 165 lb 129/73 119/67 134/74 131/74 134/70 125/84 114/61 109/52 105/52 94/48 107/53 103/54 105/63 111/65 103/58 101/55 100/58 -?-?-?-?-?-?-?-?-?-?-?-?- -?-?-?-?-?-?-?-?-?-?-?-?- NST FHR Rate Baby A Baseline: 140 Variability:: Moderate Accelerations:: 15 x 15 Decelerations:: None NST Reactive:: Yes FHR Category:: Category I Uterine Activity:: q3-5 ROS Constitutional Constitutional: Reports systems reviewed and no addt'l complaints, except as documented ENT HEENT: Reports systems reviewed and no addt'l complaints, except as documented Cardiovascular Cardiovascular: Reports systems reviewed and no addt'l complaints, except as documented Respiratory/Chest Respiratory/Chest: Reports systems reviewed and no addt'l complaints, except as documented Gastrointestinal Gastrointestinal: Reports systems reviewed and no addt'l complaints, except as documented and nausea; Denies abdominal pain Genitourinary Genitourinary: Reports systems reviewed and no addt'l complaints, except as documented, contractions Details: present and frequency (regular ) and movement Details: present Musculoskeletal Musculoskeletal: Reports systems reviewed and no addt'l complaints, except as documented Integumentary Integumentary: Reports as per HPI Neurologic Neurologic: Reports systems reviewed and no addt'l complaints, except as documented Endocrine Endocrinology: Reports systems reviewed and no addt'l complaints, except as documented Vital Signs Vital Signs Vital Signs: 09/20/21 21:07 09/20/21 22:17 09/20/21 22:39 Temperature 98.1 F Temperature Source Pulse Rate 75 73 Blood Pressure 129/73 H 119/67 134/74 H BP Systolic 129 119 134 BP Diastolic 73 67 74 Pulse Ox 100 09/20/21 22:40 09/20/21 22:45 09/20/21 22:49 Temperature Temperature Source Pulse Rate 82 82 82 Blood Pressure 131/74 H 134/70 H BP Systolic 131 134 BP Diastolic 74 70 Pulse Ox 100 100 09/20/21 22:50 09/20/21 22:54 09/20/21 22:55 Temperature Temperature Source Pulse Rate 87 71 Blood Pressure 125/84 H BP Systolic 125 BP Diastolic 84 Pulse Ox 99 100 09/20/21 23:00 09/20/21 23:05 09/20/21 23:06 Temperature Temperature Source Pulse Rate 80 74 80 Blood Pressure 114/61 109/52 L BP Systolic 114 109 BP Diastolic 61 52 Pulse Ox 99 98 09/20/21 23:10 09/20/21 23:12 09/20/21 23:15 Temperature Temperature Source Pulse Rate 69 75 74 Blood Pressure 105/52 L BP Systolic 105 BP Diastolic 52 Pulse Ox 98 97 09/20/21 23:16 09/20/21 23:20 09/20/21 23:21 Temperature Temperature Source Pulse Rate 74 71 73 Blood Pressure 94/48 L 107/53 L BP Systolic 94 107 BP Diastolic 48 53 Pulse Ox 98 09/20/21 23:25 09/21/21 00:13 09/21/21 00:16 Temperature 97.6 F L Temperature Source Temporal Pulse Rate 71 61 66 Blood Pressure 103/54 L 105/63 BP Systolic 103 105 BP Diastolic 54 63 Pulse Ox 98 97 09/21/21 01:02 09/21/21 01:41 09/21/21 01:43 Temperature 96.7 F L 96.7 F L Temperature Source Temporal Pulse Rate 73 56 L Blood Pressure 111/65 103/58 L BP Systolic 111 103 BP Diastolic 65 58 Pulse Ox 99 09/21/21 01:44 09/21/21 02:27 09/21/21 02:28 Temperature 97.5 F L Temperature Source Temporal Pulse Rate 66 64 Blood Pressure 101/55 L BP Systolic 101 BP Diastolic 55 Pulse Ox 98 97 09/21/21 03:16 Temperature 97.5 F L Temperature Source Temporal Pulse Rate 55 L Blood Pressure 100/58 L BP Systolic 100 BP Diastolic 58 Pulse Ox 100 Weight Weight: 165 lb Body Mass Index (BMI) 28.3 Physical Exam Const alert, oriented x3 and healthy appearing Constitutional Narrative: uncomfortable with contractions HEENT normocephalic and moist oral mucous membranes Head and Scalp: atraumatic Neck full ROM, no lymphadenopathy, supple and thyroid normal General: trachea midline Thyroid: thyroid normal Lymph Lymphatic: no lymphadenopathy noted Chest inspection of chest normal Resp normal respiratory effort Cardio regular rate GI normal to inspection, nondistended, normoactive bowel sounds, soft to palpation and non-tender Inspection: gravid external exam normal Bimanual Exam - Vag & Uterus: uterus non-tender Manual OB Exam: estimated gestational size appropriate, presentation cephalic, dilated, effaced and station Extremity normal to inspection General Extremity: Negative for edema Skin no rashes or lesions noted Neuro deep tendon reflexes 2+ bilaterally Motor Exam: strength 5/5 throughout and clonus absent Psych mental status grossly normal Labs Labs Labs: Blood Type O POSITIVE Antibody Screen NEGATIVE Hct 31.9 % (37-47) L Hgb 10.7 g/dL (12.0-15.0) L Obstetrics US Syphilis Total Ab Non-reactive Rubella IgG Antibody Reactive (Nonreactive) Hep Bs Antigen Non-Reactive (Nonreactive) Chlamydia DNA ([place]) Negative (Negative) Neisseria gonorrhoeae DNA ([place]) Negative (Negative) HIV 1&2 Antibody Non-Reactive (Nonreactive) Glucose 1 Hr 50 gm 76 mg/dL (70-140) Rhogam given: No Assessment & Plan (1) Thrombocytopenia: COMMENT: mild at 123,000:rpt 2 weeks:144,000 (2) Supervision of other normal : COMMENT: PRR AMERICA: 09/19/21 girl PC: Maria Elena Spouse: Gurpreet GBS negative (3) : QUALIFIERS: Weeks of gestation: 39 weeks Qualified Code(s): Z 3A.39 - 39 weeks gestation of COMMENT: Declines genetic, declines carrier and NTD. nl anatomy PLAN: Patient presents IAL, plan expectant management for , pitocin/AROM PRN if needed. Pain management: plans epidural. GBS neg. Management of any complications: none I have reviewed the [facility] and made any clinically relevant updates.
--- NOTE | 2021-09-21 04:19 | OP.PCM_ITS ---
Assessment & Plan (1) Thrombocytopenia: COMMENT: mild at 123,000:rpt 2 weeks:144,000 (2) Supervision of other normal : COMMENT: PRR [place]: 09/19/21 girl PC: Maria Elena Spouse: Gurpreet GBS negative (3) : QUALIFIERS: Weeks of gestation: 39 weeks Qualified Code(s): Z3A.39 - 39 weeks gestation of COMMENT: Declines genetic, declines carrier and NTD. nl anatomy (4) Normal vaginal delivery: COMMENT: SM 40 IAL girl Maternal Data Information AMERICA Calculator Estimated Delivery Date Method Current WG Current Estimate 09/19/21 LMP (Certain) 40w 2d Vaginal Delivery Operative Information Date of Procedure: 09/21/21 Pre-Operative Diagnosis: IAL Post-Operative Diagnosis: same Surgery / Procedure Performed: Spontaneous Vaginal Delivery Type of Anesthesia: Epidural Special Medications: none Estimated Blood Loss: 100 Fluids Replaced: crystalloid Findings Description of Procedure: Patient began pushing and delivered the head in the KATHRYN presentation. The head was delivered atraumatically . The anterior and posterior shoulders delivered without complication followed by the rest of the and the was placed on the maternal abdomen. Delayed cord clamping was employed for approximately 60 seconds. Cord was clamped and cut and gentle traction was applied to the cord and the placenta delivered spontaneously immediately following it was noted to be intact with three-vessel cord. The perineum and vagina were inspected and noted to hae a first degree perineal laceration repaired in the usual fashion with 3-0 rapide. EBL was 100 cc. Patient and tolerated delivery well. Presentation: KATHRYN Amniotic Membrane Rupture Type: Artificial Amniotic Fluid Description: Lightly stained meconium Placental Delivery Description: Spontaneous Placenta Disposition: [facility] Cord Vessel Description: 3 Vessels Cord Entanglement: None Delayed Cord Clamping: Yes Post Vaginal Delivery Medications Given After Delivery: IV Pitocin Episiotomy Description: None Laceration: Perineal Extension/lac and 1st degree Complication Complications: None Procedures Urinary/Genital [id number]: [id number] Vaginal Delivery [facility]
--- NOTE | 2021-09-21 04:20 | PCM.DC ---
Discharge Instructions Diet Discharge Diet: No restrictions Activity Discharge Activity: Return to Normal Activity, May Not Drive (while taking narcotic pain medications.) and May Shower May resume sexual activity in: 4-6 weeks Dressing / Incision Call your doctor if your incision/area has: Continuous Slow Oozing, Sudden Increased Bleeding, Increased Pain/ Swelling, Increased Redness and Foul Smelling Discharge Follow Up Care Please Follow Up With: Daphnie Mcmahan MD When: Call [phone] to make an appointment with your doctor in 6 weeks. If you had elevated blood pressure or 4th degree laceration, you will need to be seen in 2 weeks. Test Results: Test results from this visit will be discussed in further detail at your follow-up appointment, if applicable. Discharge Plan Admission Admit Date/Time: 09/20/21 21:15 Attending Provider: Daphnie Mcmahan Primary Care Provider: Harley Carrizales Discharge Orders/Prescriptions Prescriptions: No Action vitamin#30 30 mg iron-10 mg iron-folic acid 1 mg-omg3 capsule 30 mg iron-10 mg iron-1 mg capsule 1 cap PO DAILY RF: 0 Referrals / Follow Up: Harley Carrizales MD [Primary Care Provider] - Disposition Disposition (needs filled in before D/C Order can be placed): Home, Self Care
[2021-09-21] MEDS: Oxytocin 30 units/NS 500 ml 30 UNITS/500 ML IV.SOLN 334 UNITS IV (04:34)
[2021-09-21] MEDS: 0.9% Saline Lock 10 ML Syringe IV (07:06)
[2021-09-21] MEDS: Naproxen 500 MG Tablet PO ×2 (07:57→17:30)
[2021-09-21] MEDS: Hydrocortisone 2.5% Crm 1 APPLIC TOPICAL (08:19)
[2021-09-21] MEDS: Senna/Docusate Sodium 1 Tablet PO (20:21)
[2021-09-22 00:30] VITALS: BP 113/68; PULSE 50; RESP 14; TEMP 36.6; O2SAT 97
[2021-09-22] MEDS: Acetaminophen 500 MG Tablet 1000 MG PO (01:18)
[2021-09-22 04:58] VITALS: BP 107/68; PULSE 60; RESP 18; TEMP 36.6
[2021-09-22] MEDS: Naproxen 500 MG Tablet PO (07:06)
[2021-09-22 07:40] VITALS: BP 113/78; PULSE 63; RESP 16; TEMP 36.2; O2SAT 97
--- NOTE | 2021-09-22 07:55 | PCM.PN.OB ---
Subjective Subjective Patient doing well without complaints. Tolerating PO. Ambulating and voiding without difficulty. feeding well. Denies chest pain, shortness of breath, calf pain/swelling, fevers, chills, lightheadedness. Objective Data Objective Data Vital Signs: Vital Signs Temp Pulse Resp BP Pulse Ox 97.2 F L 63 16 113/78 97 09/22/21 07:40 09/22/21 07:40 09/22/21 07:40 09/22/21 07:40 09/22/21 07:40 Oxygen Delivery Method Room Air Weight: 165 lb Body Mass Index (BMI) 28.3 Intake & Output: Intake and Output for Last 24 Hours 09/20/21 09/21/21 09/22/21 23:59 23:59 23:59 Intake Total 500 / 500 1926.67 / 1926.67 Output Total 1300 / 1300 Balance 500 / 500 626.67 / 626.67 Lab / Micro Data Result Diagrams: 09/20/21 21:25 Micro: Microbiology 09/20/21 21:40 Nasal Secretion SARS-CoV-2 Antigen (Rapid) - Final ROS Constitutional Constitutional: Reports systems reviewed and no addt'l complaints, except as documented Cardiovascular Cardiovascular: Reports systems reviewed and no addt'l complaints, except as documented Respiratory/Chest Respiratory/Chest: Reports systems reviewed and no addt'l complaints, except as documented Gastrointestinal Gastrointestinal: Reports systems reviewed and no addt'l complaints, except as documented Physical Exam Const alert, oriented x3 and no apparent distress HEENT Head and Scalp: atraumatic Resp normal respiratory effort GI soft to palpation and non-tender Bimanual Exam - Vag & Uterus: uterus non-tender Uterus Palpation: uterus fundus firm (below Umbilicus) Assessment & Plan (1) Normal vaginal delivery: COMMENT: SM 40 IAL girl PLAN: s/p PPD # 1 1. routine post delivery care 2. breast feeding- support given 3. rh positive 4. rubella immune
--- NOTE | 2021-09-28 10:37 | NURSING ---
Follow up call complete, patient reports she is doing very well and was satisfied with her care. Denies any questions or concerns.
== END 2021-09-22 09:58 | disposition home or self-care (01) | DRG 807 ==
LOC: WPOUT 21:19 → WP 21:19
PROVIDERS: Admitting Provider Obstetrics & Gynecology; PCP Family Medicine; Visit Provider Obstetrics & Gynecology
DX: O99.12 Other diseases of the blood and blood-forming organs and certain disorders involving the immune mechanism complicating childbirth (principal); Z37.0 Single live birth; D69.6 Thrombocytopenia, unspecified; O77.0 Labor and delivery complicated by meconium in amniotic fluid; Z3A.40 40 weeks gestation of pregnancy; O70.0 First degree perineal laceration during delivery
CPT/HCPCS: 59025; 59050; 85025; 86850; 86900; 86901; 87426; 99218; J7120; A4216; G0378

== ENCOUNTER → 2022-10-30 | Outpatient (CLI) | payer BC, SELFPAY ==
[2022-11-04 18:23] LABS: HPV Reflexed? NOT INDICATED
== END | disposition home or self-care (01) ==
LOC: LABSPEC 14:08
PROVIDERS: PCP Family Medicine; Referring Provider Obstetrics & Gynecology; Visit Provider Obstetrics & Gynecology
DX: Z12.4 Encounter for screening for malignant neoplasm of cervix (principal)
CPT/HCPCS: 88175; G0145

== ENCOUNTER → 2023-04-24 | Outpatient (CLI) | payer BC, SELFPAY ==
[2023-04-24 11:44] LABS: Thyroid Stim Hormone (TSH) 1.26 uIU/mL (0.358-3.74)
== END | disposition home or self-care (01) ==
PROVIDERS: Advanced Practice Midwife; PCP Family Medicine; Referring Provider Obstetrics & Gynecology; Visit Provider Obstetrics & Gynecology
DX: R23.2 Flushing (principal)
CPT/HCPCS: 36415; 84443

== ENCOUNTER → 2023-07-21 | Outpatient (CLI) | payer BC, SELFPAY ==
[2023-07-23 22:07] LABS: Chlamydia By Nucleic Acid AMP Negative (Negative); Gonococcus By Nucleic Acid AMP Negative (Negative)
== END | disposition home or self-care (01) ==
LOC: LABSPEC 16:07
PROVIDERS: PCP Family Medicine; Referring Provider Obstetrics & Gynecology; Visit Provider Obstetrics & Gynecology
DX: Z34.90 Encounter for supervision of normal pregnancy, unspecified, unspecified trimester (principal)
CPT/HCPCS: 87086; 87491; 87591

== ENCOUNTER → 2023-08-05 | Outpatient (CLI) | payer BC, SELFPAY ==
[2023-08-05 16:42] LABS: Absolute Lymphocyte Count 1.85 X10^3/uL (0.83-4.51); Absolute Neutrophil Count 3.3 X10^3/uL (2.0-7.7); Basophil# 0.02 X10^3/uL; Basophil% 0.3 % (0-1); Eosinophil# 0.24 X10^3/uL; Eosinophils% 4.1 % (0-5); Hematocrit 35.3 % (37-47); Hemoglobin 12.1 g/dL (12.0-15.0); Lymphocyte # 1.85 X10^3/ul (0.83-4.51); Lymphocyte % 31.5 % (19-41); Mean Corp Hgb Conc 34.3 g/dL (32-36); Mean Corpuscular Hgb 30.7 pg (27.0-32.0); Mean Corpuscular Volume 89.6 fL (81-99); Mean Platelet Vol. 9.5 fl (6.2-12.0); Monocyte% 6.8 % (0-10); NRBC Flagged by Analyzer 0 % (0-5); Neutrophil # 3.34 X10^3/uL (2.7-7.7); Platelet Count 145 K/mm3 (150-450); RBC Distribution Width CV 12.4 % (11.6-14.6); RBC Distribution Width SD 40.6 fl (35.1-43.9); Red Blood Count 3.94 M/mm3 (4.2-5.4); White Blood Count 5.9 K/mm3 (4.4-11.0)
[2023-08-05 17:53] LABS: HIV - WCH Non-Reactive (Nonreactive); Hepatitis B Surface Antigen Non-Reactive (Nonreactive); Hepatitis C Antibody Non-Reactive (Nonreactive); Rubella IgG Reactive (Nonreactive); Syphilis Antibodies Non-reactive
--- OUTSIDE RECORDS SUMMARY | 2023-08-05 22:36 | XMS RPT_ITS | CCD ---
Author Name Unknown Address [address] [place] [address] [address] [place] [address] Organization [facility] Care Team Providers Care Manager Rental Name Role Phone Kylee Robison MD Unavailable KYLEE ROBISON Referring Unavailable KYLEE ROBISON Attending Unavailable SISSY MENCHACA Primary Care Unavailable Allergies Allergy Classification Reported Allergen(s) Allergy Type Date of Onset Reaction(s) Facility (1 source) Penicillins; Translations: [PENICILLINS] Propensity to adverse reactions to drug (disorder) 6 [facility] Rep[facility] Problems Problem Classification Problem Date Documented Da te Episodic/Chronic Residual codes; unclassified (1 source) FH: Chromosomal anomaly; Translations: [Family history of other congenital malformations, deformations and chromosomal abnormalities] 07-10-2022 Episodic Results Test Name Value Interpretation Reference Range Facil ity Encounters Encounter Date Encounter Type Care Provider Facility Start: 05-11-2023 End: 05-11-2023 ambulatory SISSY MENCHACA Facility:[facility] Start: 02-02-2023 End: 02-02-2023 ambulatory SISSY MENCHACA Facility:[facility] Start: 07-10-2022 End: 07-11-2022 ambulatory KYLEE ROBISON [facility] Start: 07-10-2022 End: 07-10-2022 Subsequent hospital visit by physician Kylee Robison MD Work Phone: [facility] Plan of Treatment Date Care Activity Detail Author Start: 2009 MenB (1 of 2 - MenB 2-Dose Series Bexsero) MenB (1 of 2 - MenB 2-Dose Series Bexsero) [facility] Start: 2000 Tetanus Diphtheria a nd Pertussis Vaccines (1 - Tdap) Tetanus Diphtheria and Pertussis Vaccines (1 - Tdap) [facility] Start: 1994 MMR (1 of 1 - Standa rd series) MMR (1 of 1 - Standard series) [facility] Start: 01-17-1994 COVID-19 (#1) COVID-19 (#1) [facility] Start: 1993 Hepatitis B (1 of 3 - 3-dose series) Hepatitis B (1 of 3 - 3-dose series) [facility] FISH Probe - 22q/ VC F/ Di Ameya - Blood FISH Probe - 22q/ VCF/ Di Clifton - Blood Lab Routine Family history of chromosomal abnormality 07/10/2022 1:58 PM [facility] Work Phone: Payers Date Payer Category Payer Unknown RADHA GARCIA BS PPO [id number] 2022-Present [address] [place] [address] [id number] 2021 Unknown [id number] 2020 Unknown [id number] 1993 Unknown [id number] Social History Date Type Detail Facility Tobacco smoking stat [facility] Tobacco smoking consumption unknown [facility] Start: 1993 Sex Assigned At Not on file [facility] Gender identity Not on file [facility] Progress note 05-11-2023 Note Date & Type Note Facility 05-11-2023 Note HNO ID: [id number] Author: Evelyn Hernandes APRN.[employer] Service: ? Author Type: Nurse Practitioner Type: Progress Notes Filed: 05/11/2023 5:58 PM Note Text: This note was created using NoteWriter. Subjective Naveen Shah is a 27 year old female. Patient presents with 10 day history of right ear and sinus pressure. Patient reports pressure has been worsening and nothing has relieved symptoms. Objective BP 110/68 Pulse 82 Temp 36.2 ?C (97.1 ?F) Resp 16 Wt 68.9 kg (152 lb) LMP 02/10/2017 SpO2 99% BMI 26.09 kg/m? Physical Exam PHYSICAL EXAMINATION General appearance: Well appearing, alert, in no acute distress, well-hydrated, well nourished. Ears: Positive findings: erythema and edema of ear canal: on right Nose/Sinuses: Positive findings: mucosa erythematous and swollen Oropharynx: Positive findings: moderate oropharyngeal erythema Neck: Positive findings: posterior cervical adenopathy Assessment and Plan ASSESSMENT/PLAN: 1. Bacterial sinusitis - ICD9: 473.9, 041.9, ICD10: J32.9, B96.89 - Will begin treatment with Doxycycline - The patient should also be given OTC decongestants prn for the first 5-7 days of treatment. - Supportive care with plenty of fluids, rest, and analgesia prn. - DOXYCYCLINE MONOHYDRATE 100 MG CAPSULE Evelyn Hernandes APRN.[employer] [facility] Progress note 02-02-2023 Note Date & Type Note Facility 02-02-2023 Note HNO ID: [id number] Author: Jessica Valdivai APRN.[employer] Service: ? Author Type: Nurse Practitioner Type: Progress Notes Filed: 02/02/2023 7:51 PM Note Text: Subjective Patient came in with complaints of possible poison kaylyn or poison oak on bilateral legs and left arm. Patient says she was in please review poison sumac a few days ago. Patient says it itches pretty bad. Patient works in [employer] several days and is worried its can get worse. Patient denies any other symptoms. The history is provided by the patient. No foreign languages department chair was used. Rash Review of Systems Constitutional: Negative. Skin: Positive for itching and rash. Objective Physical Exam Constitutional: Appearance: Normal appearance. Pulmonary: Effort: Pulmonary effort is normal. Skin: Comments: Patient had raised erythematous areas in the places marked above. Neurological: Mental Status: She is alert. PAST MEDICAL HISTORY Diagnosis Date UTI (urinary tract infection) Recurrent Urinary Tract Infections PAST SURGICAL HISTORY Procedure Laterality Date UNSPECIFIED ORAL SURGERY PROCEDURE, BY REPORT [place] [facility] ALLERGIES Penicillins MEDICATIONS levonorgestrel (KYLEENA) 17.5 mcg/24 hrs (5 yrs) 19.5 mg IUD 1 Each by INTRAUTERINE route one time only. predniSONE (DELTASONE) 20 mg tablet Take 1 tablet by mouth once daily. (Patient not taking: Reported on 02/02/2023) Tmrasvqbbcojiev-Vbmsmdqox-PO (BROMFED DM) 2-30-10 mg/5 mL syrup Take 5 mL by mouth four times daily as needed. (Patient not taking: Reported on 02/02/2023) triamcinolone acetonide (KENALOG) 0.1 % cream Apply 1 application to affected area twice daily. Levonorgestrel-Ethinyl Estrad (AVIANE) 0.1mg - 20mcg per tablet Take 1 tablet by mouth once daily. (Patient not taking: Reported on 02/02/2023) FAMILY HISTORY Problem Relation Age of Onset Cancer Maternal Grandfather type unknown Heart Paternal Grandfather [place] None Mother None Father Diabetes Other none Colon Cancer Other none Social History Tobacco Use Smoking status: Never Smokeless tobacco: Never Substance Use Topics Alcohol use: Yes Comment: Occasionally Drug use: No ASSESSMENT/PLAN: 1. Allergic contact dermatitis due to plants, except food - ICD9: 692.6, ICD10: L23.7 - PREDNISONE 10 MG TABLET Patient was educated about proper use of medication supportive therapies. Patient will follow-up if signs and symptoms seem to be getting worse not better. Patient was okay with this care plan. Jessica Valdivia APRN.[facility] Evaluation note Note Date & Type Note Facility documented in this encounter [facility] Reason for visit Narrative Referral (Routine) - Closed Note Date & Type Note Facility Referral ID Status Reason Start Date Expiration Date V isits Requested Visits Authorized [id number] Closed Specialty Services Required 06/30/2022 05/24/2023 1 1 [facility] Summary Purpose Family History No Family History Records FoundNo Family History Records Found Advance Directives No Advanced Directives Records FoundNo Advanced Directives Records Found Additional Source Comments Care Teams (unrecognized sec tion and content) INFORMATION SOURCE (unrecogn ized section and content) DATE CREATED AUTHOR AUTHOR'S DEREK SOLORIO 05/13/2023 [facility] FOR RECORDS PERTAINING TO PATIENTS WHO ARE OR HAVE BEEN ENROLLED IN A CHEMICAL DEPENDENCY/SUBSTANCEABUSE PROGRAM, SOME INFORMATION MAY BE OMITTED. This clinical summary was aggregated from multiple sources. Caution should be exercised in using it in the provision of clinical care. This summary normalizes information from multiple sources, and as a consequence, information in this document may materially change the coding, format and clinical context of patient data. In addition, data may be omitted in some cases. CLINICAL DECISIONS SHOULD BE BASED ON THE PRIMARY CLINICAL RECORDS. [facility] [employer] [facility]. provides no warranty or guarantee of the accuracy or completeness of information in this document.
== END | disposition home or self-care (01) ==
PROVIDERS: Obstetrics & Gynecology; PCP Family Medicine; Visit Provider Obstetrics & Gynecology
DX: Z34.81 Encounter for supervision of other normal pregnancy, first trimester (principal)
CPT/HCPCS: 36415; 85025; 86703; 86762; 86780; 86803; 86850; 86900; 86901; 87340

== ENCOUNTER 2023-08-28 19:36 | Emergency (ER) | payer BC, SELFPAY ==
[2023-08-28 19:36] VITALS: BP 126/64; PULSE 76; RESP 18; TEMP 36.1; O2SAT 100; BMI 27.5
[2023-08-28 19:48] VITALS: BP 120/83; PULSE 72; RESP 16; TEMP 36.2; O2SAT 100
--- NOTE | 2023-08-28 19:50 | ED.VIS.FEGU ---
HPI HPI - Female History of Present Illness Chief Complaint: Vag Bld, Preg Informant: patient and PCP (OB) Bleeding Issue: Positive for Vaginal bleeding Onset: Today Context: Gradual Onset Current Severity: Spotting Maximum Severity: Spotting Associated Symptoms P: 2 Narrative Narrative: Healthy 28-year-old female G3, P2 around [address] Mcmahan started spotting today, no pain, no syncope, no other significant symptoms, concerned about viability of . No falls or injuries. PFSH PFSH Medical History Chronic eczema Contraceptive management IUD check up Normal vaginal delivery Seasonal allergies Segmental and somatic dysfunction of cervical region Segmental and somatic dysfunction of lumbar region Segmental and somatic dysfunction of thoracic region Home Medications vitamins no.163-iron bis-gly 20 mg-folate no.10 1 mg tablet (PNV Tabs 20-1) tab PO 07/17/23 [History Last Taken Unknown] Allergy/AdvReac Type Severity Reaction Status Date / Time Penicillins Allergy Rash Verified 08/05/23 15:40 Family History Grandfather Myocardial infarction Paternal Grandfather Cancer Maternal Grandmother Parkinsons disease Paternal Surgical History H/O wisdom tooth extraction Social History adopted: No household members: spouse and children housing: house number of children: 2 current occupational status: employed 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 pets and animals: Yes pets and animals: dog(s) history of recent travel: Yes ([place]) out of state: Yes out of country: No sexually active: Yes Smoking Status: Never smoker second hand exposure: No alcohol intake: current alcohol intake frequency: holidays/special occasions only details: Not while substance use type: does not use well-balanced diet: daily or most days caffeine: Yes Type: coffee Number of servings: 1 eating out: 1-3 times/week during the past year weight has: remained stable what type of physical activity do you participate in: other details: body weight training frequency: 3-4 times per week duration: 15-30 minutes/day samantha/druze: Yazidism seatbelt use: always do you feel safe at home: Yes additional social history: Spouse- Gurpreet- Construction ROS ROS ED Constitutional Constitutional ED: Denies chills or fever(s) Cardiovascular Cardiovascular: Denies chest pain or syncope Respiratory/Chest Respiratory/Chest: Denies dyspnea Gastrointestinal Gastrointestinal: Denies abdominal pain, nausea or vomiting Genitourinary Genitourinary ED: Reports as per HPI; Denies dysuria EXAM Physical Exam Const Vital Signs: 08/28/23 19:36 08/28/23 19:48 Temperature 97 F L 97.2 F L Temperature Source Temporal Pulse Rate 76 72 Respiratory Rate 18 16 Blood Pressure 126/64 H 120/83 H Blood Pressure Mean 84 95 Pulse Ox 100 100 Oxygen Delivery Method Room Air Positive well nourished and well developed General Appearance ED: well developed and NAD Resp normal respiratory effort GI normal to inspection, nondistended, normoactive bowel sounds, soft to palpation and non-tender Extremity normal to inspection and full ROM Neuro oriented x3, CN's II-XII intact bilaterally, no sensory deficits noted and gait normal Motor Exam: strength 5/5 throughout Psych mental status grossly normal Skin no rashes or lesions noted and no wounds MDM MDM MDM Narrative Medical decision making narrative: Performed bedside ultrasound here in the emergency department myself. Patient has a single live intrauterine with heart tones 151, and good movement. There may be a small subchorionic hemorrhage that is superior and posterior, the placenta appears to be anterior. Patient is doing well her vital signs are normal, I measured a biparietal distance approximately 15 weeks. At this time patient reassured, I discussed with her OB prior to her arrival, who agree that if she has a single live intrauterine , she can be discharged home to follow-up after the weekend. History & Record Review Additional record(s) reviewed:: Prior labs (Blood type O+) Discharge Plan Triage Chief Complaint: Vag Bld, Preg ED Provider: Bacilio Guzman Dx/Rx/DC Orders Clinical Impression: , threatened, Subchorionic hematoma Instructions: Miscarriage Threatened Prescriptions: No Action PNV Tabs 20-1 20 mg iron- 1 mg tablet PO Primary Care Provider: Marlo Carrizales Referrals: Marlo Carrizales MD [Primary Care Provider] - Daphnie Mcmahan MD [Med Staff - Active Staff] - (call after the weekend to check in with regards to your symptoms.) Disposition Disposition: Home, Self Care
== END 2023-08-28 20:06 | disposition home or self-care (01) ==
LOC: ED 20:00
PROVIDERS: Emergency Provider Emergency Medicine; PCP Family Medicine; Visit Provider Emergency Medicine
DX: O20.0 Threatened abortion (principal); O41.8X20 Other specified disorders of amniotic fluid and membranes, second trimester, not applicable or unspecified; Z3A.15 15 weeks gestation of pregnancy
CPT/HCPCS: 99282

== ENCOUNTER → 2023-09-18 | Outpatient (CLI) | payer BC, SELFPAY | END | disposition home or self-care (01) | PROVIDERS: PCP Family Medicine; Referring Provider Nurse Practitioner Women's Health; Visit Provider Nurse Practitioner Women's Health | DX: Z36.9 Encounter for antenatal screening, unspecified (principal) | CPT/HCPCS: 36415 ==

== ENCOUNTER → 2023-10-09 | Outpatient (CLI) | payer BC, SELFPAY ==
[2023-10-09 15:28] LABS: Absolute Lymphocyte Count 1.38 X10^3/uL (0.83-4.51); Absolute Neutrophil Count 3.1 X10^3/uL (2.0-7.7); Basophil# 0.02 X10^3/uL; Basophil% 0.4 % (0-1); Eosinophil# 0.08 X10^3/uL; Eosinophils% 1.6 % (0-5); Hematocrit 32.1 % (37-47); Hemoglobin 10.9 g/dL (12.0-15.0); Lymphocyte # 1.38 X10^3/ul (0.83-4.51); Lymphocyte % 28.2 % (19-41); Mean Corpuscular Hgb 30.8 pg (27.0-32.0); Mean Corpuscular Volume 90.7 fL (81-99); Mean Platelet Vol. 9.8 fl (6.2-12.0); Monocyte# 0.29 X10^3/uL; Monocyte% 5.9 % (0-10); NRBC Flagged by Analyzer 0 % (0-5); Neutrophil # 3.11 X10^3/uL (2.7-7.7); Neutrophil % 63.5 % (47-70); Platelet Count 155 K/mm3 (150-450); RBC Distribution Width SD 42.7 fl (35.1-43.9); Red Blood Count 3.54 M/mm3 (4.2-5.4); White Blood Count 4.9 K/mm3 (4.4-11.0)
== END | disposition home or self-care (01) ==
LOC: LAB 14:08
PROVIDERS: PCP Family Medicine; Referring Provider Advanced Practice Midwife; Visit Provider Advanced Practice Midwife
DX: R53.83 Other fatigue (principal)
CPT/HCPCS: 36415; 85025

== ENCOUNTER → 2023-11-24 | Outpatient (CLI) | payer BC, SELFPAY ==
[2023-11-24 11:11] LABS: Absolute Lymphocyte Count 1.48 X10^3/uL (0.83-4.51); Absolute Neutrophil Count 3.6 X10^3/uL (2.0-7.7); Basophil# 0.01 X10^3/uL; Basophil% 0.2 % (0-1); Eosinophil# 0.11 X10^3/uL; Hematocrit 34.1 % (37-47); Hemoglobin 11.6 g/dL (12.0-15.0); Lymphocyte # 1.48 X10^3/ul (0.83-4.51); Lymphocyte % 26.5 % (19-41); Mean Corpuscular Hgb 31.4 pg (27.0-32.0); Mean Corpuscular Volume 92.4 fL (81-99); Mean Platelet Vol. 9.3 fl (6.2-12.0); Monocyte% 7.2 % (0-10); NRBC Flagged by Analyzer 0 % (0-5); Neutrophil # 3.56 X10^3/uL (2.7-7.7); Neutrophil % 63.7 % (47-70); Platelet Count 121 K/mm3 (150-450); RBC Distribution Width CV 13.2 % (11.6-14.6); RBC Distribution Width SD 44.3 fl (35.1-43.9); Red Blood Count 3.69 M/mm3 (4.2-5.4); White Blood Count 5.6 K/mm3 (4.4-11.0)
[2023-11-24 11:37] LABS: Glucose Challenge Gest 1H 50g 60 mg/dL (70-140)
[2023-11-26 16:10] LABS: HIV - WCH Non-Reactive (Nonreactive); Syphilis Antibodies Non-reactive
== END | disposition home or self-care (01) ==
LOC: PAVLAB 10:09
PROVIDERS: PCP Family Medicine; Referring Provider Nurse Practitioner Women's Health; Visit Provider Nurse Practitioner Women's Health
DX: Z13.1 Encounter for screening for diabetes mellitus (principal)
CPT/HCPCS: 36415; 82950; 85025; 86703; 86780

== ENCOUNTER → 2023-12-17 | Outpatient (CLI) | payer BC, SELFPAY ==
--- NOTE | 2023-12-17 14:01 | VDLE_ITS ---
Reason For Study: Left leg pain Procedure LEFT This is a venous duplex using B-mode, color GSV is normal. flow and spectral Doppler. CFV is compressible, spontaneous, phasic, Exam performed in department. competent, and demonstrates normal A preliminary report was called and/or faxed augmentation. to Dr. Palacios. FV is compressible, spontaneous, phasic, competent and demonstrates normal augmentation. POP V is compressible, spontaneous, phasic, competent and demonstrates normal augmentation. T/P Trunk is compressible. PTV is compressible. LT PerV is compressible. Thrombus filled varicose vein noted at the proximal viera. VL/Venous Duplex US, Unilateral Interpretation Summary Acute superficial venous thrombosis noted in varicosities of the left lower leg . Deep veins of the left lower extremity are patent and compressible segmentally. There is no evidence of left lower extremity deep vein thrombosis. The left great saphenous vein nelly ears patent and compressible segmentally. Ordering Physician: Kinza Traore Referring Physician: Marlo Carrizales MD Performed By: Freda Miller RVT
== END | disposition home or self-care (01) ==
LOC: CVS 14:00
PROVIDERS: PCP Family Medicine; Referring Provider Nurse Practitioner Women's Health; Visit Provider Nurse Practitioner Women's Health
DX: O22.00 Varicose veins of lower extremity in pregnancy, unspecified trimester (principal); Z3A.00 Weeks of gestation of pregnancy not specified; M79.605 Pain in left leg; O99.891 Other specified diseases and conditions complicating pregnancy
CPT/HCPCS: 93971

== ENCOUNTER → 2024-01-20 | Outpatient (CLI) | payer BC, SELFPAY ==
[2024-01-20 09:09] LABS: Absolute Lymphocyte Count 1.15 X10^3/uL (0.83-4.51); Absolute Neutrophil Count 3.8 X10^3/uL (2.0-7.7); Basophil# 0.01 X10^3/uL; Basophil% 0.2 % (0-1); Eosinophils% 1.8 % (0-5); Hematocrit 36.9 % (37-47); Hemoglobin 12.4 g/dL (12.0-15.0); Lymphocyte # 1.15 X10^3/ul (0.83-4.51); Lymphocyte % 20.4 % (19-41); Mean Corp Hgb Conc 33.6 g/dL (32-36); Mean Corpuscular Hgb 30.9 pg (27.0-32.0); Mean Platelet Vol. 9.9 fl (6.2-12.0); Monocyte# 0.52 X10^3/uL; Monocyte% 9.2 % (0-10); NRBC Flagged by Analyzer 0 % (0-5); Neutrophil # 3.82 X10^3/uL (2.7-7.7); Neutrophil % 67.7 % (47-70); Platelet Count 136 K/mm3 (150-450); RBC Distribution Width CV 12.8 % (11.6-14.6); RBC Distribution Width SD 42.8 fl (35.1-43.9); Red Blood Count 4.01 M/mm3 (4.2-5.4); White Blood Count 5.6 K/mm3 (4.4-11.0)
== END | disposition home or self-care (01) ==
LOC: PAVLAB 08:56
PROVIDERS: PCP Family Medicine; Referring Provider Obstetrics & Gynecology; Visit Provider Obstetrics & Gynecology
DX: O99.119 Other diseases of the blood and blood-forming organs and certain disorders involving the immune mechanism complicating pregnancy, unspecified trimester (principal); D69.6 Thrombocytopenia, unspecified
CPT/HCPCS: 36415; 85025

== ENCOUNTER → 2024-02-03 | Outpatient (CLI) | payer BC, SELFPAY ==
--- NOTE | 2024-02-05 15:30 | US_ITS ---
EXAM: US , LIMITED CLINICAL INDICATION: uterine size-date discrepancy TECHNIQUE: Real-time limited ultrasound of the maternal uterus with image documentation. COMPARISON: No relevant prior studies available. FINDINGS: FETUS: There is an intrauterine gestation. weight 3857 g, 99 percentile. GESTATIONAL AGE: Gestational age 36 weeks 4 days. AMERICA: AMERICA 02/29/2024. BPD: Biparietal diameter 9.4 cm age 38 weeks 2 days, 94th percentile. HC: Head circumference 34.1 cm age of 39 weeks 2 days, 84th percentile. AC: Abdominal circumference 36.2 cm age 40 weeks 1 day, 99 percentile. FL: Femur length 7.7 cm age 39 2 days, 96 percentile. POSITION: The fetus is in the cephalic position. heart rate is 138 bpm. PLACENTA: Placenta is anterior. AMNIOTIC FLUID: SEBASTIAN is 11.1 cm. US/OB Limited With Biometrics IMPRESSION: Intrauterine gestation with an average ultrasound age of 39 weeks 1 day and ultrasound estimated due date of 02/11/2024. heart rate is 138 bpm. Electronically Signed: Hayden Paulino MD at 23:56 EDT ,
== END | disposition home or self-care (01) ==
PROVIDERS: PCP Family Medicine; Referring Provider Obstetrics & Gynecology; Visit Provider Obstetrics & Gynecology
DX: O09.93 Supervision of high risk pregnancy, unspecified, third trimester (principal); O26.843 Uterine size-date discrepancy, third trimester; Z3A.00 Weeks of gestation of pregnancy not specified
CPT/HCPCS: 76816; 87081

== ENCOUNTER → 2024-02-08 | Outpatient (CLI) | payer BC, SELFPAY ==
[2024-02-08 12:15] LABS: Absolute Lymphocyte Count 1.65 X10^3/uL (0.83-4.51); Absolute Neutrophil Count 3.8 X10^3/uL (2.0-7.7); Basophil# 0.02 X10^3/uL; Basophil% 0.3 % (0-1); Eosinophil# 0.22 X10^3/uL; Eosinophils% 3.5 % (0-5); Hematocrit 35.2 % (37-47); Hemoglobin 11.9 g/dL (12.0-15.0); Lymphocyte # 1.65 X10^3/ul (0.83-4.51); Lymphocyte % 26.4 % (19-41); Mean Corp Hgb Conc 33.8 g/dL (32-36); Mean Corpuscular Hgb 31.2 pg (27.0-32.0); Mean Corpuscular Volume 92.4 fL (81-99); Monocyte# 0.49 X10^3/uL; Monocyte% 7.8 % (0-10); NRBC Flagged by Analyzer 0 % (0-5); Neutrophil # 3.83 X10^3/uL (2.7-7.7); Neutrophil % 61.2 % (47-70); Platelet Count 124 K/mm3 (150-450); RBC Distribution Width CV 12.8 % (11.6-14.6); RBC Distribution Width SD 42.8 fl (35.1-43.9); Red Blood Count 3.81 M/mm3 (4.2-5.4); White Blood Count 6.3 K/mm3 (4.4-11.0)
[2024-02-08 12:31] LABS: Glucose Challenge Gest 1H 50g 99 mg/dL (70-140)
== END | disposition home or self-care (01) ==
PROVIDERS: Nurse Practitioner Women's Health; PCP Family Medicine; Referring Provider Obstetrics & Gynecology; Visit Provider Obstetrics & Gynecology
DX: O99.119 Other diseases of the blood and blood-forming organs and certain disorders involving the immune mechanism complicating pregnancy, unspecified trimester (principal); D69.6 Thrombocytopenia, unspecified; Z3A.00 Weeks of gestation of pregnancy not specified; Z13.1 Encounter for screening for diabetes mellitus
CPT/HCPCS: 36415; 82950; 85025

== ENCOUNTER 2024-02-23 07:18 | Inpatient (IN) | payer BC, SELFPAY ==
[2024-02-23] VITALS (45 sets, daily range): BP systolic 77–146; BP diastolic 51–80; PULSE 63–95; RESP 16–18; TEMP 36.1–37.1; O2SAT 80–100; BMI 31.0
[2024-02-23] MEDS: 0.9% Normal Saline Single 100 ML IV.SOLN. INTRA-UTER (07:30)
--- NOTE | 2024-02-23 07:46 | HP.PCM.OB_ITS ---
HPI - General General Date of Admission: 02/23/24 HPI Narrative NAVEEN SHAH, is a 28 y/o @ 39 weeks who presents to L&D for IOL. baby was weighing 8 lbs 5 oz 2 weeks ago. suspect 9 lbs 5 oz current weight. her last baby weighed 8 lbs 15 oz and she did well. She was re-tested for GDM and was negative. Maternal Data Information AMERICA Calculator Estimated Delivery Date Method Current WG Current Estimate 02/29/24 LMP (Certain) 39w 1d Other Estimates 02/25/24 Ultrasound #1 39w 5d 02/24/24 Ultrasound #2 39w 6d PFSH PFS Medical History Normal vaginal delivery Segmental and somatic dysfunction of thoracic region Segmental and somatic dysfunction of lumbar region Segmental and somatic dysfunction of cervical region Seasonal allergies Chronic eczema Home Medications ?Medication ?Instructions ?Recorded ?Last Taken ?Type vitamins no.163-iron tab PO 07/17/23 Unknown History bis-gly 20 mg-folate no.10 1 mg tablet (PNV Tabs 20-1) aspirin 81 mg chewable tablet 81 mg PO QDAY 02/08/24 Unknown History Allergy/AdvReac Type Severity Reaction Status Date / Time Penicillins Allergy Rash Verified 02/17/24 08:54 Family History Grandfather Myocardial infarction Paternal Grandfather Cancer Maternal Grandmother Parkinsons disease Paternal Surgical History H/O wisdom tooth extraction Social History adopted: No household members: spouse and children housing: house number of children: 2 current occupational status: employed 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 pets and animals: Yes pets and animals: dog(s) history of recent travel: Yes ([place]) out of state: Yes out of country: No sexually active: Yes Smoking Status: Never smoker second hand exposure: No alcohol intake: current alcohol intake frequency: holidays/special occasions only details: Not while substance use type: does not use well-balanced diet: daily or most days caffeine: Yes Type: coffee Number of servings: 1 eating out: 1-3 times/week during the past year weight has: remained stable what type of physical activity do you participate in: other details: body weight training frequency: 3-4 times per week duration: 15-30 minutes/day samantha/jew: [employer] seatbelt use: always do you feel safe at home: Yes additional social history: Spouse- Gurpreet- Construction History 3 Elective abortions Hx Para 2 Spontaneous abortions Hx # Term Pregnancies Ectopic pregnancies Hx # Pregnancies Multiple births # of living children 2 Past Pregnancies Del. Date Name GA/Weeks Outcome Route Bth Weight Gen Labor Lgth Anesthesia Del Locatn Provider FOB 02/12/19 Maria Elena Dhruv Shah 22q deletion 40 live - full ter m 6.12 Female epidural [employer] CHRISTIANO Gurpreet 09/21/21 [facility] 40 live - full term 8#15oz Female epi dural [employer] Marcanthony Delivery Date: 02/12/19 Last Updated by: Asha Chung 2 degree lac Delivery Date: 09/21/21 Last Updated by: Ivis Abdi 40 Visit Details Expected Delivery Route/Plan Labor Preferences- CB/BF classes: no labor support person: Gurprete labor intervention preferences: [] pain management options preferred: epidural cut cord/dad catch: cord : yes PP control planned: discussed; probable vasectomy discussed possible routes of delivery and associated risks: [] special requests: [] Plans Covid status: discussed Flu vaccine: received Tdap vaccine: Rhogam: NA LARC form signed: yes Problem list reviewed and updated with the most current plan of care details and appropriate orders placed. Relevant counseling for the gestational age provided. Continue routine care and follow up unless otherwise noted in visit notes/problem list details OB Flowsheet Initial Weight: Not Recorded Date -?-?-?-?-?-?-?-?-?-?-?-?- EGA Weight BP Urine Prot -?-?-?-?-?-?-?-?-?-?-?-?- Glucose FHR FuHt Pres Dilation -?-?-?-?-?-?-?-?-?-?-?-?- Effaced St Visit Note 07/21/23 -?-?-?-?-?-?-?-?-?-?-?-?- 8w 1d 153 lb 6 oz 125/74 -?-?-?-?-?-?-?-?-?-?-?-?- 170 -?-?-?-?-?-?-?-?-?-?-?-?- SM- CRL 1.9 cm c ons with LMP 08/05/23 -?-?-?-?-?-?-?-?-?-?-?-?- 10w 2d 156 lb 2 oz 115/76 Nega tive -?-?-?-?-?-?-?-?-?-?-?-?- Negative 160 -?-?-?-?-?-?-?-?-?-?-?-?- JV- growth is ap propriate today on bedside scan. 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 She just found this out. She is not interested in carrier testing though. wants anatomy with [facility] 08/31/23 -?-?-?-?-?-?-?-?-?-?-?-?- 14w 0d 157 lb 129/79 Negative -?-?-?-?-?-?-?-?-?-?-?-?- Negative 160 -?-?-?-?-?-?-?-?-?-?-?-?- Sm- had spottin mary ann the weekend seen in er, reviewed bleeding precautions. 09/16/23 -?-?-?-?-?-?-?-?-?-?-?-?- 16w 2d 163 lb 8 oz 112/72 Nega tive -?-?-?-?-?-?-?-?-?-?-?-?- Negative 148 -?-?-?-?-?-?-?-?-?-?-?-?- MH-No further VB . Nausea resolved. AFP today. Discussed belly band for vulvar pressure 10/15/23 -?-?-?-?-?-?-?-?-?-?-?-?- 20w 3d 164 lb 108/65 Negative -?-?-?-?-?-?-?-?-?-?-?-?- Negative 145 20 -?-?-?-?-?-?-?-?-?-?-?-?- SM- no vb lof go od fm n oregular ctx 11/10/23 -?-?-?-?-?-?-?-?-?-?-?-?- 24w 1d 170 lb 2 oz 110/68 Nega tive -?-?-?-?-?-?-?-?-?-?-?-?- Negative 144 24 -?-?-?-?-?-?-?-?-?-?-?-?- MH-No Vb, LOF. G ood FM. Still struggling w/varicosities larissa vulva, enc cali band 12/08/23 -?-?-?-?-?-?-?-?-?-?-?-?- 28w 1d 171 lb 2 oz 103/64 Nega tive -?-?-?-?-?-?-?-?-?-?-?-?- Negative 140 28 -?-?-?-?-?-?-?-?-?-?-?-?- KW- no vb/lof/ct x. good fm. tdap next visit. LARC done. 12/23/23 -?-?-?-?-?-?-?-?-?-?-?-?- 30w 2d 176 lb 100/63 Negative -?-?-?-?-?-?-?-?-?-?-?-?- Negative 137 31 -?-?-?-?-?-?-?-?-?-?-?-?- JV- no lof, vagi nal bleeding, or dec fm. tdap today. has superficial clot on left viera. on baby asa. 01/06/24 -?-?-?-?-?-?-?-?-?-?-?-?- 32w 2d 175 lb 4 oz 109/63 Nega tive -?-?-?-?-?-?-?-?-?-?-?-?- Negative 153 32 -?-?-?-?-?-?-?-?-?-?-?-?- JV- no lof,vagin al bleeding, or dec fm. no complaints. 01/20/24 -?-?-?-?-?-?-?-?-?-?-?-?- 34w 2d 175 lb 2 oz 121/70 Nega tive -?-?-?-?-?-?-?-?-?-?-?-?- Negative 144 34 -?-?-?-?-?-?-?-?-?-?-?-?- JV- no lof, vagi nal bleeding, or dec fm. feeling a little short of breath. ordering rpt cbc also to look for plt count. 02/03/24 -?-?-?-?-?-?-?-?-?-?-?-?- 36w 2d 179 lb 4 oz 123/70 Nega tive -?-?-?-?-?-?-?-?-?-?-?-?- Negative 140 40 -?-?-?-?-?-?-?-?-?-?-?-?- SM- no vb lof go od fm no regular ctx 02/08/24 -?-?-?-?-?-?-?-?-?-?-?-?- 37w 0d 181 lb 2 oz 113/72 Nega tive -?-?-?-?-?-?-?--?-?-?-?-?- Negative 140 37 -?-?-?-?-?-?-?-?-?-?-?-?- SM- no vb lof go od fm no regular ctx SM- no vb lof good fm no reg ular ctx discussed repeat testing of gct 02/17/24 -?-?-?-?-?-?-?-?-?-?-?-?- 38w 2d 181 lb 6 oz 112/72 Nega tive -?-?-?-?-?-?-?-?-?-?-?-?- Negative 130 39 Cephalic 2 -?-?-?-?-?-?--?-?-?-?-?-?- 50 -2 SM- no vb questionable LOF only 1 episode no continual leaking good fm no regular ctx but having some irregular SM- no vb questionable LOF o nly 1 episode no continual leaking good fm no regular ctx but having some irregular ctx no signs of rupture on exam, appears intact. reviewed precautions. ROS Constitutional Constitutional: Denies change in weight, fatigue, fever(s), headache(s), poor appetite or weakness Eyes Eyes: Denies blurry vision, change in vision, seeing flashes or spots in vision ENT HEENT: Denies dizziness, headache(s), loss taste/smell or sore throat Cardiovascular Cardiovascular: Denies chest pain, dizziness, dyspnea, irregular heart rhythm, leg edema, palpitations, rapid heart rate or vomiting Respiratory/Chest Respiratory/Chest: Denies chest tightness, cough, dyspnea or breast pain Gastrointestinal Gastrointestinal: Denies abdominal pain, anorexia, constipation, cramping, diarrhea, hemorrhoids, vomiting or weight changes Genitourinary Genitourinary: Denies dysuria, flank pain, genital lesions, genital pain, urinary frequency or urinary urgency Musculoskeletal Musculoskeletal: Denies back pain, difficulty walking, joint pain, limited range of motion, muscle cramps or numbness Integumentary Integumentary: Denies lesions or unusual bruising Neurologic Neurologic: Denies abnormal movements, abnormal speech, dizziness, numbness, seizure-like activity or syncope Psychiatric Psychiatric: Denies anxiety, behavioral changes, change in appetite, change in libido, cognitive impairment, confusion, depression, difficulty concentrating, hallucinations or suicidal thoughts Endocrine Endocrinology: Denies excessive sweating, polydipsia or polyuria Hematologic/Lymphatic Hematologic/Lymphatic: Denies easy bleeding, easy bruising or lymphadenopathy Allergic/Immunologic Allergic/Immunologic: Denies itchy eyes, lip swelling, seasonal rhinorrhea, rhinitis, throat swelling, tongue swelling, eczemia, wheezing or asthma Vital Signs Vital Signs Vital Signs: 02/23/24 07:41 02/23/24 07:41 02/23/24 07:41 Pulse Rate 92 Blood Pressure 120/80 BP Systolic 120 BP Diastolic 80 Pulse Ox 80 Physical Exam Const alert, oriented x3, no apparent distress and healthy appearing General Appearance: cooperative; Negative for anxious HEENT normocephalic Face and Sinus: normal facial exam Eyes EOMs intact bilaterally and no scleral icterus General Eye: normal appearance of both eyes Neck full ROM and supple Lymph Lymphatic: no lymphadenopathy noted Chest Chest: abnormal inspection of the chest Resp normal respiratory effort Effort and Inspection: able to speak in complete sentences Cardio regular rate GI soft to palpation and non-tender Inspection: gravid Palpation: soft; Negative for tender external exam normal External Female Exam: normal appearance of the urethra Speculum Exam - Vagina: Negative for vaginal lesion Bimanual Exam - Vag & Uterus: other cx is 1.5/70/-1 and posterior. norton catheter was inserted and inflated with 60cc ns. Amniotic Fluid: ROM+plus Back/Spine no CVA tenderness Extremity normal to inspection, full ROM and no clubbing, cyanosis or edema General Extremity: Negative for calf tenderness or edema Skin Lesions: no lesions Rashes: no rashes Psych mental status grossly normal Labs Labs Labs: Blood Type O POSITIVE Antibody Screen NEGATIVE Hct 35.2 % (37-47) L Hgb 11.9 g/dL (12.0-15.0) L Obstetrics Ultrasound Syphilis Total Ab Non-reactive Rubella IgG Antibody Reactive (Nonreactive) Hep Bs Antigen Non-Reactive (Nonreactive) Hepatitis C Antibody Non-Reactive (Nonreactive) Hepatitis C Ab (EIA) <0.1 s/co ratio (0.0-0.9) Chlamydia DNA ([place]) Negative (Negative) N.gonorrhoeae DNA ([place]) Negative (Negative) HIV 1&2 Antibody Non-Reactive (Nonreactive) Glucose 1 Hr 50 gm 99 mg/dL (70-140) Rhogam given: No Miscellaneous Test Assessment & Plan (1) Large for gestational age fetus affecting management of mother: COMMENT: recommend repeat GCT, and discussed IOL by 39, earlier if diabetic uncontrolled diagnosed with repeat GCT (2) Uterine size-date discrepancy, third trimester: (3) Thrombocytopenia affecting : COMMENT: rpt 4 weeks (4) Anemia in preg-unspec: QUALIFIERS: Trimester: second trimester Qualified Code(s): O99.012 - Anemia complicating , second trimester COMMENT: Taking Fe daily (5) Family history of genetic disease: COMMENT: previous daughter with chromosome 22q deletion. genetic testing low risk. (6) Varicose veins of vulva during : (7) Supervision of high-risk : QUALIFIERS: Trimester: second trimester Qualified Code(s): O09.92 - Supervision of high risk , unspecified, second trimester COMMENT: PRR , [place] 02/29/24, boy PC Rosaliogerman, [facility] Gurpreet (8) : QUALIFIERS: Weeks of gestation: 38 weeks Qualified Code(s): Z3A.38 - 38 weeks gestation of COMMENT: DOC ONLY. normal anatomy. genetic testing low risk. baby is male. AFP negative PLAN: Plan Patient presents IOL, plan management for with pitocin/AROM. Pain management: plans epidural. GBS negative. Management of any complications: see above [facility] and made any clinically relevant updates.
[2024-02-23] MEDS: Lactated Ringers 1,000 ML 50 ML IV (07:50)
[2024-02-23 08:04] LABS: Absolute Lymphocyte Count 1.47 X10^3/uL (0.83-4.51); Absolute Neutrophil Count 4.8 X10^3/uL (2.0-7.7); Basophil# 0.03 X10^3/uL; Basophil% 0.4 % (0-1); Eosinophil# 0.15 X10^3/uL; Eosinophils% 2.1 % (0-5); Hematocrit 36.2 % (37-47); Hemoglobin 12.6 g/dL (12.0-15.0); Lymphocyte # 1.47 X10^3/ul (0.83-4.51); Lymphocyte % 20.7 % (19-41); Mean Corp Hgb Conc 34.8 g/dL (32-36); Mean Corpuscular Hgb 31.4 pg (27.0-32.0); Mean Corpuscular Volume 90.3 fL (81-99); Mean Platelet Vol. 10.2 fl (6.2-12.0); Monocyte# 0.63 X10^3/uL; Monocyte% 8.9 % (0-10); NRBC Flagged by Analyzer 0 % (0-5); Neutrophil # 4.75 X10^3/uL (2.7-7.7); Neutrophil % 67.1 % (47-70); Platelet Count 142 K/mm3 (150-450); RBC Distribution Width CV 12.7 % (11.6-14.6); RBC Distribution Width SD 41.7 fl (35.1-43.9); Red Blood Count 4.01 M/mm3 (4.2-5.4); White Blood Count 7.1 K/mm3 (4.4-11.0)
[2024-02-23] MEDS: Oxytocin 15 Units/NS 250ml 15 UNITS/250 ML IV.SOLN 2 UNITS IV (08:30)
[2024-02-23 09:04] LABS: Syphilis Antibodies Non-reactive
[2024-02-23] MEDS: Lactated Ringers 1,000 ML 999 ML IV (11:28)
--- NOTE | 2024-02-23 12:38 | PCM.PN.BLA ---
Progress Note pt requests SROM prior to epidural. She feels mild contractions current tracing: FHT: Moderate variability reactive no decelerations category I tracing [place]: irregular Contractions Cx: station is undetermined and limbs are felt. Cx is 4/80. on ultrasound the head is in the LUQ. A/P: breech presentation and LGA. pt given option for version vs primary section. she want epidural now and attempt version. if not a successful version, will be a section.
[2024-02-23] MEDS: fentaNYL-bupivacaine (epidural) 100 ML BAG EPIDURAL ×3 (13:19→21:59)
[2024-02-23] MEDS: Terbutaline 1 MG/ML Vial 0.25 MG SC (14:43)
--- NOTE | 2024-02-23 15:34 | PRO.PCM_ITS ---
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 Renee Palacios Procedure: external cephalic version Details of procedure: Induction of labor was initiated with a norton balloon and when this fell out attempt was made to AROM when the the station was not found. Ultrasound showed right upper quadrant head position, pooja breech presentation. SEBASTIAN 10. The risks, benefits, and alternatives were discussed. Pitocin was stopped and the patient requested and external cephalic version rather than proceeding with section epidural anesthesia was started and found to be adequate. The tracing was a category 1, reactive. Terbutaline 0.25mg IM was given. Contractions were rare and low amplitude. The head was pushed in a gentle downward motion and the buttocks elevated from the lower uterine segment. The version was complete after a brief 5 minutes. The heart rate tracing was then applied and a category 1 tracing was noted. A vaginal exam was then performed and the head was found to be well engaged on the cervix. membranes were noted to be intact. Shortly after the pelvic exam the patient became unresponsive to sound and touch. O2 was applied and an YAJAIRA was called. THe patient was put in trundelenburg position and placed on her left side. The patient then became alert as we walked through the OR doors. The heart rate was back up from a brief deceleration. Accelerations were noted. The patient is now back in her delivery room in stable condition. Assessment & Plan Assessment/Plan (1) Labor presentation, breech: (2) Large for gestational age fetus affecting management of mother: (3) Uterine size-date discrepancy, third trimester: (4) Thrombocytopenia affecting : (5) Anemia in preg-unspec: QUALIFIERS: Trimester: second trimester Qualified Code(s): O99.012 - Anemia complicating , second trimester (6) Family history of genetic disease: (7) Varicose veins of vulva during : (8) Supervision of high-risk : QUALIFIERS: Trimester: second trimester Qualified Code(s): O09.92 - Supervision of high risk , unspecified, second trimester (9) : QUALIFIERS: Weeks of gestation: 38 weeks Qualified Code(s): Z3A.38 - 38 weeks gestation of Multi Select Codes Urinary/Genital Urinary/Genital CPT Codes: 45052 ECV
[2024-02-23] MEDS: Lactated Ringers 1,000 ML 200 ML IV ×2 (16:05→21:47)
[2024-02-24] VITALS (36 sets, daily range): BP systolic 112–129; BP diastolic 64–78; PULSE 57–97; RESP 12–17; TEMP 36.3–37.7; O2SAT 16–99
[2024-02-24] MEDS: Amnioinfusion- 0.9% NS 1,000 ML IV.SOLN. 1000 ML INTRA-UTER (00:02)
[2024-02-24] MEDS: Lactated Ringers 1,000 ML 200 ML IV (02:32)
[2024-02-24] MEDS: fentaNYL-bupivacaine (epidural) 100 ML BAG EPIDURAL (02:35)
[2024-02-24] MEDS: Oxytocin 15 Units/NS 250ml 15 UNITS/250 ML IV.SOLN 83 UNITS IV (03:03)
[2024-02-24] MEDS: Methylergonovine 0.2 MG/ML Ampul IM ×2 (03:08→09:05)
--- NOTE | 2024-02-24 03:18 | EX.PCM.OBRPT ---
Assessment & Plan (1) Labor presentation, breech: (2) Large for gestational age fetus affecting management of mother: COMMENT: recommend repeat GCT, and discussed IOL by 39, earlier if diabetic uncontrolled diagnosed with repeat GCT (3) Uterine size-date discrepancy, third trimester: (4) Thrombocytopenia affecting : COMMENT: rpt 4 weeks (5) Anemia in preg-unspec: QUALIFIERS: Trimester: second trimester Qualified Code(s): O99.012 - Anemia complicating , second trimester COMMENT: Taking Fe daily (6) Family history of genetic disease: COMMENT: previous daughter with chromosome 22q deletion. genetic testing low risk. (7) Varicose veins of vulva during : (8) Supervision of high-risk : QUALIFIERS: Trimester: second trimester Qualified Code(s): O09.92 - Supervision of high risk , unspecified, second trimester COMMENT: PRR , [place] 02/29/24, boy PC Maria Elena, [facility] Gurpreet (9) : QUALIFIERS: Weeks of gestation: 38 weeks Qualified Code(s): Z3A.38 - 38 weeks gestation of COMMENT: DOC ONLY. normal anatomy. genetic testing low risk. baby is male. AFP negative Maternal Data Information AMERICA Calculator Estimated Delivery Date Method Current WG Current Estimate 02/29/24 LMP (Certain) 39w 2d Other Estimates 02/25/24 Ultrasound #1 39w 6d 02/24/24 Ultrasound #2 40w 0d Final AMERICA Source: LMP Gestational age: 39 weeks 2 days Vaginal Delivery Maternal Presentation Maternal Presentation: Medically Indicated Induction Type of Induction: Pitocin, Feliz Bulb and Amniotomy Operative Information Date of Procedure: 02/24/24 Pre-Operative Diagnosis: @ 39 weeks 2 days, suspect LGA, previous breech presentation Post-Operative Diagnosis: @ 39 weeks 2 days, suspect LGA, previous breech presentation Surgery / Procedure Performed: Spontaneous Vaginal Delivery Type of Anesthesia: Epidural Drain: Feliz to straight drain Estimated Blood Loss: 300cc Time of Delivery: 02:59 Findings Description of Procedure: Patient began pushing and delivered the head in the KATHRYN presentation. The head was delivered atraumatically and a loose nuchal cord ?1 was identified and easily reduced over the infant's head. The anterior and posterior shoulders delivered without complication followed by the rest of the infant and the was placed on the maternal abdomen. Delayed cord clamping was employed for approximately 60 seconds. Cord was clamped and cut and gentle traction was applied to the cord and the placenta delivered spontaneously immediately following it was noted to be intact with three-vessel cord. The perineum and vagina were inspected and noted to have a 1st degree laceration. This was repaired using a 2-0 vicryl. EBL was 300. Methergine was used to help with some mild uterine atony. Patient and tolerated delivery well Baby Boy Gurrola . Presentation: Vertex Time of Membrane Rupture: 1530 Amniotic Fluid Description: Clear Placental Delivery Description: Spontaneous Placenta Disposition: [facility] Cord Vessel Description: 3 Vessels Cord Entanglement: Around neck x 1, loose Nuchal Cord Compression: Without compression A Gender: Male (1 minute): 8 (5 minute): 9 Delayed Cord Clamping: Yes Post Vaginal Delivery Medications Given After Delivery: IV Pitocin and IM Methergin Episiotomy Description: None Laceration: 1st degree Complication Complications: None Multi Select Codes Urinary/Genital Urinary/Genital CPT Codes: 40715 Vaginal Delivery [facility]
--- NOTE | 2024-02-24 03:24 | DCINST_ITS ---
Discharge Instructions Diet Discharge Diet: No restrictions Activity Discharge Activity: Return to Normal Activity, May Not Drive (while taking narcotic pain medications.) and May Shower May resume sexual activity in: 4-6 weeks Dressing / Incision Call your doctor if your incision/area has: Continuous Slow Oozing, Sudden Increased Bleeding, Increased Pain/ Swelling, Increased Redness and Foul Smelling Discharge Follow Up Care Please Follow Up With: Renee Palacios, DO When: Call [phone] to make an appointment with your doctor in 6 weeks. If you had elevated blood pressure or 4th degree laceration, you will need to be seen in 2 weeks. Test Results: Test results from this visit will be discussed in further detail at your follow- up appointment, if applicable. Discharge Plan Admission Admit Date/Time: 02/23/24 07:18 Attending Provider: Renee Palacios Primary Care Provider: Marlo Carrizales Discharge Orders/Prescriptions Prescriptions: No Action PNV Tabs 20-1 20 mg iron- 1 mg tablet PO aspirin 81 mg tablet,chewable 81 mg PO QDAY cetirizine [24Hour Allergy] 10 mg tablet 10 mg PO DAILY PRN (Reason: allergy symptoms) Referrals / Follow Up: Marlo Carrizales MD [Primary Care Provider] -
[2024-02-24] MEDS: Ondansetron 4 MG/2 ML Vial IV (03:53)
[2024-02-24] MEDS: Acetaminophen 500 MG Tablet 1000 MG PO ×3 (04:44→23:52)
[2024-02-24] MEDS: Ibuprofen 600 MG Tablet PO (09:05)
--- NOTE | 2024-02-24 13:05 | NURSING ---
student nurses charting reviewed and agree that is used for educational and learning purposes.
[2024-02-25 03:06] VITALS: BP 132/82; PULSE 58; RESP 16; O2SAT 99
[2024-02-25] MEDS: Ibuprofen 600 MG Tablet PO (07:11)
[2024-02-25 08:20] VITALS: BP 116/64; PULSE 50; RESP 16; TEMP 36.3; O2SAT 98
--- NOTE | 2024-02-25 09:35 | PCM.PN.OB ---
Subjective Subjective Patient doing well without complaints. Tolerating PO. Ambulating and voiding without difficulty. Feeding well. Denies chest pain, shortness of breath, calf pain/swelling, fevers, chills, lightheadedness. Objective Data Objective Data Vital Signs: Vital Signs Temp Pulse Resp BP Pulse Ox O2 Del Method 97.4 F L 50 L 16 116/64 98 Room Air 02/25/24 08:20 02/25/24 08:20 02/25/24 08:20 02/25/24 08:20 02/25/24 08:20 02/25/24 08:20 Oxygen Delivery Method Room Air Weight: 181 lb Body Mass Index (BMI) 31.0 Intake & Output: Intake and Output for Last 24 Hours 02/23/24 02/24/24 02/25/24 23:59 23:59 23:59 Intake Total 3113.63 / 3113.63 1370.55 / 1370.55 Output Total 300 / 300 700 / 700 Balance 2813.63 / 2813.63 670.55 / 670.55 Lab / Micro Data 02/23/24 07:50 ROS Constitutional Constitutional: Denies chills, fatigue, fever(s), poor appetite or weakness Eyes Eyes: Denies blurry vision, change in vision, seeing flashes or spots in vision ENT HEENT: Denies dizziness, headache(s), loss taste/smell or sore throat Cardiovascular Cardiovascular: Denies chest pain, dizziness, dyspnea, irregular heart rhythm, palpitations or rapid heart rate Respiratory/Chest Respiratory/Chest: Denies chest tightness, cough, dyspnea or breast pain Gastrointestinal Gastrointestinal: Denies abdominal pain, constipation or vomiting Genitourinary Genitourinary: Denies dysuria or flank pain Musculoskeletal Musculoskeletal: Denies difficulty walking, joint pain, limited range of motion or numbness Neurologic Neurologic: Denies abnormal movements, abnormal speech, dizziness, numbness, seizure-like activity or syncope Psychiatric Psychiatric: Denies anxiety, behavioral changes, change in appetite, confusion, depression or suicidal thoughts Physical Exam Const alert, oriented x3 and no apparent distress General Appearance: cooperative and comfortable Resp normal respiratory effort Cardio regular rate GI normal to inspection, nondistended, normoactive bowel sounds GI Narrative: uterus is firm below umbilicus Palpation: soft Back/Spine no CVA tenderness and thoraco-lumbar ROM normal Extremity normal to inspection, no clubbing, cyanosis or edema, no calf tenderness and no pedal edema Psych mental status grossly normal, thought process normal, cooperative, affect normal, speech normal, activity/motor behavior normal, denies homicidal ideation and denies suicidal ideation Assessment & Plan (1) Labor presentation, breech: (2) Large for gestational age fetus affecting management of mother: COMMENT: recommend repeat GCT, and discussed IOL by 39, earlier if diabetic uncontrolled diagnosed with repeat GCT (3) Uterine size-date discrepancy, third trimester: (4) Thrombocytopenia affecting : COMMENT: rpt 4 weeks (5) Anemia in preg-unspec: QUALIFIERS: Trimester: second trimester Qualified Code(s): O99.012 - Anemia complicating , second trimester COMMENT: Taking Fe daily (6) Family history of genetic disease: COMMENT: previous daughter with chromosome 22q deletion. genetic testing low risk. (7) Varicose veins of vulva during : (8) Supervision of high-risk : QUALIFIERS: Trimester: second trimester Qualified Code(s): O09.92 - Supervision of high risk , unspecified, second trimester COMMENT: PRR , [place] 02/29/24, boy SARITA Arredondo, [facility] Gurpreet PLAN: Plan s/p PPD # 1 1. routine post delivery care 2. breast feeding- support given 3. rh positive 4. rubella immune
[2024-02-25 12:50] VITALS: BP 117/68; PULSE 56; RESP 16; TEMP 36.4; O2SAT 99
== END 2024-02-25 13:55 | disposition home or self-care (01) | DRG 806 ==
PROVIDERS: Admitting Provider Obstetrics & Gynecology; PCP Family Medicine; Referring Provider Obstetrics & Gynecology; Visit Provider Obstetrics & Gynecology
DX: O32.1XX0 Maternal care for breech presentation, not applicable or unspecified (principal); Z37.0 Single live birth; O99.12 Other diseases of the blood and blood-forming organs and certain disorders involving the immune mechanism complicating childbirth; D69.6 Thrombocytopenia, unspecified; O26.843 Uterine size-date discrepancy, third trimester; O36.63X0 Maternal care for excessive fetal growth, third trimester, not applicable or unspecified; O99.02 Anemia complicating childbirth; O69.81X0 Labor and delivery complicated by cord around neck, without compression, not applicable or unspecified; O76 Abnormality in fetal heart rate and rhythm complicating labor and delivery; O70.0 First degree perineal laceration during delivery; O62.2 Other uterine inertia; Z3A.39 39 weeks gestation of pregnancy; Z79.82 Long term (current) use of aspirin; Z87.59 Personal history of other complications of pregnancy, childbirth and the puerperium; Z82.79 Family history of other congenital malformations, deformations and chromosomal abnormalities
CPT/HCPCS: 59025; 59050; 76815; 85025; 86780; 86850; 86900; 86901; 99221; J7030; J7120; G0378; J2405

== ENCOUNTER → 2024-04-07 | Outpatient (CLI) | payer BC, SELFPAY ==
[2024-04-07 12:24] LABS: Absolute Lymphocyte Count 1.84 X10^3/uL (0.83-4.51); Absolute Neutrophil Count 2.9 X10^3/uL (2.0-7.7); Basophil# 0.02 X10^3/uL; Basophil% 0.4 % (0-1); Eosinophil# 0.13 X10^3/uL; Eosinophils% 2.5 % (0-5); Hematocrit 40.7 % (37-47); Lymphocyte # 1.84 X10^3/ul (0.83-4.51); Lymphocyte % 35.1 % (19-41); Mean Corp Hgb Conc 34.4 g/dL (32-36); Mean Corpuscular Hgb 31.3 pg (27.0-32.0); Mean Corpuscular Volume 90.8 fL (81-99); Mean Platelet Vol. 9.5 fl (6.2-12.0); Monocyte# 0.39 X10^3/uL; Monocyte% 7.4 % (0-10); NRBC Flagged by Analyzer 0 % (0-5); Neutrophil # 2.85 X10^3/uL (2.7-7.7); Neutrophil % 54.4 % (47-70); Platelet Count 153 K/mm3 (150-450); RBC Distribution Width CV 11.5 % (11.6-14.6); RBC Distribution Width SD 38.5 fl (35.1-43.9); Red Blood Count 4.48 M/mm3 (4.2-5.4); White Blood Count 5.2 K/mm3 (4.4-11.0)
[2024-04-18 11:08] LABS: HPV APTIMA, High Risk Negative (Negative)
== END | disposition home or self-care (01) ==
PROVIDERS: PCP Family Medicine; Referring Provider Nurse Practitioner Women's Health; Visit Provider Nurse Practitioner Women's Health
DX: D64.9 Anemia, unspecified (principal); Z12.4 Encounter for screening for malignant neoplasm of cervix
CPT/HCPCS: 36415; 85025; 87624; 88175; G0145

== ENCOUNTER → 2025-01-18 | Outpatient (CLI) | payer BC, SELFPAY ==
[2025-01-18 10:44] LABS: Iron 118 ug/dL (50-170); Magnesium 2.1 mg/dL (1.5-2.2)
[2025-01-18 17:32] LABS: Xtra Tube EP Lab EXTRA TUBE
== END | disposition home or self-care (01) ==
PROVIDERS: PCP Family Medicine; Referring Provider Family Medicine; Visit Provider Family Medicine
DX: R42 Dizziness and giddiness (principal)
CPT/HCPCS: 36415; 83540; 83735; 84443; 85652

== ENCOUNTER → 2025-04-18 | Outpatient (CLI) | payer BC, SELFPAY ==
--- NOTE | 2025-04-18 09:53 | VDLE_ITS ---
Reason For Study Reason For Study: Bilateral leg pain RIGHT LEFT CFV is compressible, spontaneous, phasic, competent CFV is compressible, spontaneous, phasic, competent, and demonstrates normal augmentation. and demonstrates normal augmentation. FV is compressible, spontaneous, phasic, competent FV is compressible, spontaneous, phasic, competent and demonstrates normal augmentation. and demonstrates normal augmentation. POP V is compressible, spontaneous, phasic, competent POP V is compressible, spontaneous, phasic, competent and demonstrates normal augmentation. and demonstrates normal augmentation. T/P Trunk is compressible. T/P Trunk is compressible. PTV is compressible. PTV is compressible. RT PerV is compressible. LT PerV is compressible. SFJ is INCOMPETENT and measures 0.94 cm. SFJ is INCOMPETENT and measures 0.69 cm. GSV proximal thigh measures 0.34 x 0.38 cm. GSV proximal thigh measures 0.37 x 0.40 cm. Unable to visualized GSV due to vessel size from mid Unable to visualized GSV due to vessel size from mid thigh to prox calf. thigh to mid calf. GSV at prox calf measures 0.22 x 0.29 cm. GSV at mid calf measures 0.16 x 0.19 cm. GSV is competent throughout. GSV is competent throughout. ASV from junction is INCOMPETENT for greater than 0.5 ASV from junction is INCOMPETENT for greater than 0.5 seconds and measures 0.41 x 0.48 cm. Connects to the seconds and measures 0.43 x 0.46 cm. Varicose veins GSV prox calf. that extend down and across knee and viera, arise from SSV mid calf is competent and measures 0.21 x 0.18 this vessel. cm. ASV 1 proximal calf is INCOMPETENT for greater than Procedure 0.5 seconds and measures 0.26 x 0.25 cm. Connect to This is a venous duplex using B-mode, color flow and SSV distal. spectral Doppler. ASV 2 proximal calf is INCOMPETENT for greater than Exam performed in department. 0.5 seconds and measures 0.42 x 0.49 cm. Patient was scanned in reverse Trendelenburg position SSV mid calf is competent and measures 0.23 x 0.22 during reflux assessment. cm. VL/Venous Duplex US - Alberto Extrem Interpretation Summary Deep veins of the bilateral lower extremities are patent and compressible segme ntally. There is no evidence of bilateral lower extremity deep vein thrombosis. The bilateral great saphenous veins appea r patent and compressible segmentally. Positive for reflux in the right saphenofemoral junction, accessory saphenous v ein from junction. Positive for reflux in the left saphenofemoral junction, accessory saphenous ve in from junction and in calf. Ordering Physician: Kelsey Chan Referring Physician: Marlo Carrizales MD Performed By: Freda Miller RVT and Student
== END | disposition home or self-care (01) ==
LOC: CVS 09:52
PROVIDERS: PCP Family Medicine; Referring Provider Physician Assistant; Visit Provider Physician Assistant
DX: I83.893 Varicose veins of bilateral lower extremities with other complications (principal); I87.2 Venous insufficiency (chronic) (peripheral)
CPT/HCPCS: 93970